=== PATIENT | male | born 1925 | race Caucasian/White ===

== ENCOUNTER 2017-04-26 10:15 | Inpatient (IN) | payer MEDICARE ==
[2017-04-26] MEDS ORDERED: Albuterol Sulfate 2.5 mg/3 ml Neb ONE (10:28)
--- NOTE | 2017-04-26 10:56 | RAD ---
PORTABLE AP CHEST: Date: 04/26/17 HISTORY: Dyspnea. Non STEMI. Difficulty breathing. COMPARISON: 09/05/14. FINDINGS: Again noted is elevation of the right hemidiaphragm with atelectasis at the right lung base. Lungs ar e otherwise clear. The cardiac silhouette is stable in size. Pulmonary vasculature is within normal l imits. Vascular calcifications seen in thoracic aorta. There has been no interval change from the aleyda or exam. IMPRESSION: 1. Stable chest without evidence of an acute cardiopulmonary process. 2. Persistent elevation right hemidiaphragm with volume loss at right lung base. POS: [facility]
[2017-04-26 12:07] LABS: Troponin I 3.229 ng/mL (< 0.028)
--- NOTE | 2017-04-26 14:10 | HP ---
CHIEF COMPLAINT: Shortness of breath. HISTORY OF PRESENT ILLNESS: Ab Cast is a pleasant 89-year-old white male with a long prior h istory of coronary artery disease and heart failure who presented to his local ER this morning with a rather abrupt onset of shortness of breath. He was given Lasix at the outlying ER and transported t o [facility]. At that time, he was noticed to be in acute heart failure with pulmonary edema and was treated and subsequently admitted. I visited the gentleman in the ER. PHYSICAL EXAMINATION: VITAL SIGNS: His blood pressure was 152/87, his pulse rate was 90 and regular with frequent PVCs. H diana is afebrile. GENERAL: He is awake and alert and is on a BiPAP mask. EARS/NOSE/THROAT: No erythema or exudate. NECK: Supple. CARDIAC: The PMI slightly displaced laterally. Heart rhythm is regular. Heart sounds are distant. There is frequent ectopy. LUNGS: Moist rales heard to the mid lung field bilaterally. No use of accessory muscles. ABDOMEN: Flat and soft, without guarding, rebound or rigidity. EXTREMITIES: 1+ edema. NEUROLOGIC: No focal deficits. EKG: No acute ST segment changes, frequent PVCs. Much lab is still pending. However, his initial t roponin is elevated at 3.229. ASSESSMENT: 1. Non-ST elevation myocardial infarction. 2. Acute heart failure. PLAN: Admit. Continue Lasix. We will consult with Cardiology for further recommendations. He mat lyles sees Dr. Hermosillo and has so for many years.
[2017-04-26] MEDS ORDERED: Ondansetron ODT 4 MG TAB PO PRN (14:16)
--- NOTE | 2017-04-26 14:18 | HP-2 ---
CODE STATUS: DNR. PRIMARY CARE PHYSICIAN: Alan ivey. SPECIALIST: Dr. Hermosillo with Cardiology. ATTENDING: Dr. Mcgee. RESIDENT: Dr. Roque. CHIEF COMPLAINT: Shortness of breath. HISTORY OF PRESENT ILLNESS: An 89-year-old male presents with acute onset of shortness of breath donna t occurred last night. He states he was asleep, and he woke up suddenly and became short of breath a nd he could not catch up with his wind. He denied any chest pain at that time and then he went to [facility] emergency department in [place], [place]. He was found to be satting in the 80s on 3 liters of oxyge n. He chronically uses oxygen at night, not a CPAP machine, but just supplemental oxygen. He was gi [facility] and was sent to [facility] for further care. He denies any recent illness, diaphoresis, nausea, vomiting, or diarrhea. He does note that he does have a little bit of a headache that began sometime while he was in [place]. He has no other complaints at this time. PAST MEDICAL HISTORY: Significant for CHF, past CVAs, past myocardial infarctions, hyperlipidemia, h ypertension, COPD, remote history of prostate cancer, and atrial fibrillation. PAST SURGICAL HISTORY: He had a surgery on his neck. He had an appendectomy. He had a hip arthropl asty and a rotator cuff repair. ALLERGIES: IODIDES, TETANUS VACCINE AND TOXOID. HOME MEDICATIONS: 1. Acetaminophen 500 mg tablet. 2. Albuterol HFA inhaler 90 mcg 2 puffs every 6 hours as needed. 3. Atorvastatin 10 mg. 4. Furosemide 40 mg. 5. Imdur 60 mg. 6. Magnesium chloride 64 mg. 7. Metoprolol. 8. Lopressor 25 mg. 9. Nitroglycerin 0.4 mg sublingual. 10. Potassium chloride 20 mEq. 11. Ranexa 1000 mg. 12. Tramadol 50 mg. 13. Warfarin 1 mg. FAMILY HISTORY: Noncontributory. SOCIAL HISTORY: The patient does have a [id number] smoking history, but he quit over 50 years ago. He does drink alcohol socially. He denies any drug use. REVIEW OF SYSTEMS: General: He denies any fevers, chills, weight changes, night sweats, or fatigue. Eyes: Denies any vision change or eye pain. ENT: Denies any nasal congestion, rhinorrhea, or sor e throat. Respiratory: He denies any cough or congestion. He does admit to shortness of breath. C ardiovascular: He denies any chest pain or palpitations. He has longstanding edema and a new onset orthopnea. Gastrointestinal: He denies any nausea, vomiting, diarrhea, constipation, abdominal pain , GI bleeding. Genitourinary: Denies incontinence or dysuria. Skin: Denies rashes, lesions, jaund ice, itching. He does admit to frequent bruising from his Coumadin use. Musculoskeletal: No pain, tenderness, stiffness, or swelling, but he does have arthritis, especially in his hands. Neurologic: He does admit to weakness, especially in his legs following a CVA. Psychiatric: He denies any anx iety or depression. PHYSICAL EXAMINATION: VITAL SIGNS: Blood pressure is 119/71, pulse is 89, respirations are 20, temperature max 98.8, pulse ox 96% on BiPAP. Current weight is 84 kilos. GENERAL: Alert and oriented x4, appropriately interactive. EYES: PERRLA. Conjunctivae within normal limits. ENT: Tympanic membranes are pearly grigsby without bulging or erythema. Nasal mucosa and oropharynx wi thin normal limits. NECK: Supple, no lymphadenopathy, no thyromegaly. CARDIOVASCULAR: Regular rate and rhythm. No murmurs. Radial and pedal pulses are present bilateral ly. RESPIRATORY: He is currently on the BiPAP, but he did have crackles and wheezes throughout his lungs . SKIN: He is warm and dry. He does have multiple bruises on his upper extremities. ABDOMEN: Soft, nontender to palpation. Bowel sounds present x4. No mass or distention. EXTREMITIES: No clubbing, no cyanosis. He does have 1+ pitting edema bilaterally. MUSCULOSKELETAL: Structure, tone, muscle strength, and range of motion within normal limits. He mederos s have residual longstanding weakness at his legs where he uses a walker to ambulate. NEUROLOGIC: No focal neurologic deficits. Sensation within normal limits. Cranial nerves II-XII gr ossly intact. GCS of 15. PSYCHIATRIC: Appropriate LABORATORY DATA: These labs were actually conducted out at the [facility] facility and was brought with the patient. White blood cell count 5.9, platelet count 159, hemoglobin 13.8, hematocrit 39.9, MCV was 91.5. Sodium 139, potassium 3.6, chloride 100, bicarbonate 29, BUN 23, crea tinine 1.23, glucose 167, calcium 8.6, total protein 6.0, albumin 3.4, total bilirubin 1.1, AST of 26 , ALT 15, alkaline phosphate 64. INR was 2.7. PT was 28.5. Lactate was 1.9. BNP was 761. Troponi n I was 2.96 that trended up to 3.2-9. He had a VBG that showed a pH of 7.41, pCO2 of 43, and a pO2 of 71. His EKG showed normal sinus rhythm with frequent PVCs. A chest x-ray showed a stable chest w ithout evidence of acute cardiopulmonary process, persistent elevation of the right hemidiaphragm wit hout loss of volume on the right side. ASSESSMENT AND PLAN: This 89-year-old male presents with: 1. Zkn-MX-[id number] elevation myocardial infarction. We are going to trend his troponins and get repe at EKG. If symptomatic, we have consulted Cardiology from the emergency department. We have not ful ly ruled out the evidence of a pulmonary embolism. However, being that he has therapeutic levels of Coumadin, we will consider working him up for deep vein thrombosis in the coming days if the status d oes not improve. 2. Acute congestive heart failure exacerbation. We will keep him on the BiPAP, keep his O2 saturati ons above 90%. Give him IV Lasix and trend his I's and O's. 3. Acute hypoxic respiratory failure secondary to above. BiPAP and a pulmonology consult as he will be going to the IMCU. 4. Hyperlipidemia. Continue statin. 5. Hypertension. Continue his home meds. 6. Chronic obstructive pulmonary disease. We are going to start him on DuoNeb. 7. History of cerebrovascular accident. We will continue his warfarin. 8. History of atrial fibrillation. Continue his warfarin. DISPOSITION AND LENGTH OF HOSPITAL STAY: Will be IMCU and 2. Symptomatic medications will be provid ed. History and physical exam as well as management have been discussed with Dr. Mcgee.
[2017-04-26 15:11] LABS: CKMB 6.7 ng/mL (0-6.6); Troponin I 3.113 ng/mL (< 0.028)
[2017-04-26] MEDS: Furosemide 40 MG/4 ML VIAL SLOW IVP SCH (15:30)
--- NOTE | 2017-04-26 16:41 | CON ---
DATE OF CONSULTATION: 04/26/2017 CONSULTING PHYSICIAN: [facility]. REASON FOR CONSULTATION: Acute respiratory failure. HISTORY OF PRESENT ILLNESS: This is an 89-year-old male from the [facility]. He woke up this morn ing extremely short of breath. He presented to the [facility] in acute respirato ry failure, which was thought secondary to congestive heart failure. The patient tells me that he does have some reactive airway disease. He has been told in the past th is is COPD. He has not smoked in the last 60 years. He does use an albuterol inhaler at home when h e gets short of breath. PAST MEDICAL HISTORY: 1. Congestive heart failure. 2. Chronic obstructive pulmonary disease. 3. Stroke. 4. Myocardial infarction. 5. Hyperlipidemia. 6. Hypertension. 7. Prostate cancer. 8. Atrial fibrillation. PAST SURGICAL HISTORY: 1. Neck surgery. 2. Appendectomy. 3. Hip arthroplasty. 4. Rotator cuff repair. ALLERGIES: IODINE, TETANUS TOXOID and TETANUS VACCINE. MEDICATIONS PRIOR TO ADMISSION: Metoprolol, magnesium chloride, Imdur, furosemide, acetaminophen, al buterol, atorvastatin, nitroglycerin, potassium chloride, Ranexa, tramadol and warfarin. FAMILY MEDICAL HISTORY: Unremarkable. SOCIAL HISTORY: Patient quit smoking 60 years ago. Does not consume alcohol, does not use any illic it drugs. Lives at home with his . REVIEW OF SYSTEMS: Remarkable for wheezing, congestion and shortness of breath. Otherwise, 12-point review is negative. PHYSICAL EXAMINATION: VITAL SIGNS: Temperature 99.3, pulse 83, respiration is 24, O2 sat 98% and blood pressure 129/74. GENERAL: The patient is awake and alert. He is conversant when the BiPAP is removed. HEENT: Pupils react. Sclerae are anicteric. Oropharynx is clear. NECK: No JVD. LUNGS: Harsh expiratory wheezing bilaterally. He has diminished percussion in the right base, left side has normal percussion. CARDIOVASCULAR: S1 and S2 are regular, without murmur, rub or gallop. ABDOMEN: Soft and nontender. EXTREMITIES: No clubbing, cyanosis, trace pedal edema. LABORATORY DATA: Troponin is 3.1. White blood cell count 5.9, hematocrit 39.9 and platelet count 15 9. Sodium 139, potassium 3.6, chloride 100, CO2 of 29, BUN 23, creatinine 1.2 and glucose 167. BNP was measured at 761. ABG; pH 7.41, pCO2 of 42 and pO2 71. IMAGING DATA: Chest x-ray interpreted by myself shows elevated right hemidiaphragm, fairly clear diane g collado bilaterally. ASSESSMENT: 1. Asthmatic bronchitis with exacerbation of symptoms. 2. Acute hypoxic respiratory failure. 3. Question of concurrent heart failure. 4. Non-ST segment elevation myocardial infarction. RECOMMENDATIONS: 1. On and off BiPAP as needed. 2. Steroids. 3. Breathing treatments. 4. Empiric antibiotics. 5. Very judicious use of diuretics. Hence, I do not think he is very fluid overloaded at this time. Thank you for the referral. I will follow with you. Total time spent reviewing the case and reviewing the patient is 50 minutes, greater than 50% of the time was spent on counseling and coordination of care.
[2017-04-26] MEDS ORDERED: hydrALAZINE 20 MG/ML VIAL SLOW IVP PRN (16:48)
[2017-04-26] MEDS ORDERED: Aspirin 81 mg Enteric Coated Tablet PO SCH (17:00)
[2017-04-26 17:38] LABS: INR-International Normal Ratio 2.2; Prothrombin Time 25.2 SEC (12.0-14.7)
[2017-04-26 17:39] LABS: Critical Call Chem Troponin I RESULT DECREASING; Troponin I 2.696 ng/mL (< 0.028)
[2017-04-26] MEDS ORDERED: Furosemide 40 MG/4 ML VIAL SLOW IVP SCH (18:00)
[2017-04-26] MEDS ORDERED: Warfarin Sodium 2 MG TAB PO SCH (18:30)
[2017-04-26] MEDS: Arformoterol 15 MCG/2 ML NEB NEB SCH (18:38)
[2017-04-26] MEDS: Budesonide 0.5 MG/2 ML NEB INH SCH (18:38)
--- NOTE | 2017-04-26 19:54 | CON ---
CARDIOLOGY CONSULTATION NOTE DATE OF CONSULTATION: 04/26/2017 REASON FOR CONSULTATION: Non-ST elevation myocardial infarction. HISTORY OF PRESENT ILLNESS: Mr. Cast is an 89-year-old patient of Dr. Manan Hermosillo admitted and transferred from [place] with a non-ST elevation infarction. Mr. Cast was admitted to the hospital after he developed shortness of breath last night; he could not sleep, became progressively short of breath and could not catch his breath. He went to the emergency room in [place]; had oxygen saturation in the 80s on 3 liters nasal cannula. The patient went to the emergency room, was given Lasix and was transferred to [place] for [facility]. The patient is wheezing now, still having trouble breathing. No chest pain. PAST MEDICAL HISTORY: 1. Congestive heart failure, systolic, chronic, ejection fraction below 20%. 2. Coronary artery disease; underwent cardiac catheterization many years ago, in the year 1999. Med ical therapy was the only option due to diffuse atherosclerosis. 3. Hypercholesterolemia. PAST SURGICAL HISTORY: Surgery on his neck. ALLERGIES: IODINE, TETANUS and VACCINE. HOME MEDICATIONS: 1. Acetaminophen. 2. Albuterol. 3. Atorvastatin. 4. Furosemide. 5. Imdur. 6. Magnesium. 7. Metoprolol. 8. Lopressor. 9. Potassium. 10. Ranexa. 11. Tramadol. 12. Warfarin, unknown reason. FAMILY HISTORY: Noncontributory. SOCIAL HISTORY: Previous history of smoking, quit over 50 years ago. Occasional alcohol. REVIEW OF SYSTEMS: Constitutional: No significant weight gain or loss. Vision: No changes. Heari ng: No changes. Pulmonary: Positive for shortness of breath and cough. Cardiac: No chest pain or pressure. Positive for shortness of breath and cough. Gastrointestinal: No nausea, vomiting or di arrhea. Skin: No rashes. Neurologic: No unilateral weakness or numbness. Psychiatric: No unusua l depression or anxiety. Hematologic: No unusual bruising. Genitourinary: No burning with urinati on. He is able to urinate. PHYSICAL EXAMINATION: GENERAL: This is an ill-appearing elderly 89-year-old man. VITAL SIGNS: Blood pressure 129/74 and pulse 80, it is regular. EYES: Sclerae nonicteric. MOUTH: Mucous membranes are moist. NECK: Supple. No lymphadenopathy. LUNGS: Diffuse wheezing and rhonchi. CARDIAC: Normal S1 and normal S2. ABDOMEN: Soft and nontender. EXTREMITIES: No clubbing or cyanosis. There is mild peripheral edema. I do not feel pedal pulses e ither side or popliteal pulses. IMAGING DATA: Most recent echocardiogram in the computer was ejection fraction 45% to 50%. EKG; sin us rhythm with PVCs. ASSESSMENT: 1. Congestive heart failure, probably systolic, acute on chronic. 2. Non-ST elevation infarction with troponin level 3.1. 3. Renal insufficiency, estimated glomerular filtration rate is 50 on previous testing in 2015. Cre atinine is 1.23 now, which is actually better. 4. Chronic obstructive pulmonary disease. PLAN: 1. Check INR. 2. Start aspirin. 3. Echocardiogram to be done. 4. Lasix. 5. Inhaled bronchodilators. 6. Steroids. 7. Dr. Hermosillo will resume the patient's care tomorrow.
[2017-04-26 20:32] LABS: Critical Call Chem Troponin I RESULT DECREASING; Troponin I 1.823 ng/mL (< 0.028)
[2017-04-26] MEDS ORDERED: Atorvastatin Calcium 10 MG TAB PO SCH (21:00)
[2017-04-26 22:32] LABS: Critical Call Chem Troponin I RESULT DECREASING; Troponin I 1.593 ng/mL (< 0.028)
[2017-04-27] MEDS: Acetaminophen 325 MG TAB PO PRN ×2 (04:10→18:30)
[2017-04-27 04:47] LABS: #Lymphocytes 0.5 thou/uL (1.20-3.40); #Monocytes 0.1 thou/uL (0.11-0.59); #Neutrophils 3.1 thou/uL (1.40-6.50); %Basophils 0.2 % (0.0-1.0); %Eosinophils 0.3 % (0.0-10.0); %Lymphocytes 13.4 % (21.0-51.0); %Monocytes 3.7 % (0.0-10.0); %Neutrophils 82.4 % (42.0-75.0); Hemoglobin 14.3 g/dL (14.0-18.0); Mean Corpuscular HGB CONC 33.2 g/dL (32.0-36.0); Mean Corpuscular Hemoglobin 32.6 pg (27.0-31.0); Mean Corpuscular Volume 98.3 fl (80.0-94.0); Mean Platelet Volume 7.9 fL (7.4-10.4); Platelet Count 169 thou/uL (130-400); RBC Distribution Width 12.1 % (11.5-14.5); Red Blood Cell (RBC) Count 4.37 mill/uL (4.70-6.10); White Blood Cell (WBC) Count 3.8 thou/uL (4.8-10.8)
[2017-04-27 04:52] LABS: INR-International Normal Ratio 2.1; Prothrombin Time 24.5 SEC (12.0-14.7)
[2017-04-27 05:07] LABS: Anion Gap 16 mmol/L (10-20); BUN (Urea Nitrogen) 24 mg/dL (8.4-25.7); Calc. Creatinine Clearance 58 mL/min (70-130); Calcium 8.9 mg/dL (7.8-10.44); Carbon Dioxide 29 mmol/L (23-31); Chloride 96 mmol/L (98-107); Estimated GFR-MDRD 62; Glucose 206 mg/dL (83-110); Potassium 3.4 mmol/L (3.5-5.1); Sodium 138 mmol/L (136-145)
--- NOTE | 2017-04-27 06:10 | PDOC.FM ---
- Subjective Subjective: Patient had a good night. He states he did not have to use the BIPAP last night and was just using his supplemental O2 via nasal cannula which is back to his baseline. He states he has been peeing a lot and the nurse reported 3 episodes of diarrhea overnight. He denies chest pain, sob, n/v/d, fevers, or chills. He has no other complaints this morning. - Objective Vital Signs & Weight: Vital Signs (12 hours) Temp Pulse Resp BP Pulse Ox 04/27/17 04:00 97.5 F L 88 20 120/79 100 04/27/17 02:40 93 22 H 100 04/27/17 00:08 97.6 F 87 20 110/58 L 93 L 04/26/17 22:19 98 22 H 94 L 04/26/17 20:10 98.2 F 96 20 155/60 H 93 L 04/26/17 18:36 101 H 24 H 97 Weight Weight 91.081 kg I&O: 04/25/17 04/26/17 04/27/17 06:59 06:59 06:59 Intake Total 360 Output Total 1500 Balance -1140 Result Diagrams: 04/27/17 04:22 04/27/17 04:22 Phys Exam - Physical Examination Constitutional: NAD HEENT: PERRLA, moist MMs Neck: no nodes Respiratory: no wheezing, clear to auscultation bilateral Cardiovascular: RRR, no significant murmur Gastrointestinal: soft, non-tender, no distention, positive bowel sounds Musculoskeletal: no edema, pulses present Neurological: non-focal, normal sensation, moves all 4 limbs Lymphatic: no nodes Psychiatric: normal affect, A&O x 3 Skin: no rash Dx/Plan (1) NSTEMI (non-ST elevated myocardial infarction) Code(s): I21.4 - NON-ST ELEVATION (NSTEMI) MYOCARDIAL INFARCTION Status: Acute (2) Acute on chronic systolic heart failure Code(s): I50.23 - ACUTE ON CHRONIC SYSTOLIC (CONGESTIVE) HEART FAILURE Status : Acute (3) COPD (chronic obstructive pulmonary disease) Status: Acute (4) CKD (chronic kidney disease) stage 3, GFR 30-59 ml/min Code(s): N18.3 - CHRONIC KIDNEY DISEASE, STAGE 3 (MODERATE) Status: Acute (5) Dyslipidemia Code(s): E78.5 - HYPERLIPIDEMIA, UNSPECIFIED Status: Acute (6) HTN (hypertension) Code(s): I10 - ESSENTIAL (PRIMARY) HYPERTENSION Status: Acute (7) History of CVA (cerebrovascular accident) Code(s): Z86.73 - PRSNL HX OF TIA (TIA), AND CEREB INFRC W/O RESID DEFICITS Status: Acute (8) Diarrhea Code(s): R19.7 - DIARRHEA, UNSPECIFIED Status: Acute - Plan Plan: 1. NSTEMI - Cardiology on board appreciate Dr. Washington's and Dr. Hermosillo's recs - Trended troponins as high as 3.2, decreased to 1.59 - Will await cardiology recs 2. Acute on Chronic Systolic CHF - ECHO pending - Continue Lasix - I&Os -1140 ml this AM - Continue BIPAP as needed 3. COPD - Pulmonology consulted, appreciate Dr. Johnson's recs - Continue steroids, antibiotics, and inhalers - Continue BIPAP as needed 4. CKD3 - GFR estimated at 62 this AM - Improved from previous - Will monitor 5. Dyslipidemia - Continue Atorvastatin 6. HTN - Continue monitoring BP, under good control - Hydralazine PRN 7. Hx of CVA - INR this am 2.1 - Continue Warfarin 8. Diarrhea - Unknown etiology - Will ensure he stays hydrated Disposition: Stable will await Cardiology recs. Likely can be transferred to floor today.
[2017-04-27] MEDS: Furosemide 40 MG/4 ML VIAL SLOW IVP SCH ×2 (06:37→13:23)
[2017-04-27] MEDS: Arformoterol 15 MCG/2 ML NEB NEB SCH ×2 (07:13→19:05)
[2017-04-27] MEDS: Budesonide 0.5 MG/2 ML NEB INH SCH ×2 (07:13→19:05)
[2017-04-27] MEDS: Potassium Chloride 20 MEQ TAB PO SCH (08:13)
[2017-04-27] MEDS: Aspirin 81 mg Enteric Coated Tablet PO SCH (08:13)
[2017-04-27] MEDS: Magnesium Chloride 64 MG TAB PO SCH (08:17)
--- NOTE | 2017-04-27 08:44 | PRG ---
DATE OF SERVICE: 04/27/2017 The patient is doing well this morning, had no acute complaints. PHYSICAL EXAMINATION: VITAL SIGNS: Temperature 97.8, pulse 87, respirations 20, O2 sat 100% on 4 liters, blood pressure 12 3/60. HEENT: Unremarkable. NECK: No JVD. LUNGS: Clear without wheezing. CARDIAC: S1 and S2 regular. ABDOMEN: Soft. EXTREMITIES: No edema. LABORATORY DATA: White blood cell count 3.8, hematocrit 43, platelet count 169. INR 2.1. Sodium 13 8, potassium 3.4, chloride 96, CO2 29, BUN 24, creatinine 1.1, glucose 206, troponin 1.5. ASSESSMENT: 1. Chronic obstructive pulmonary disease with exacerbation. 2. Non-Q-wave myocardial infarction. 3. Acute respiratory failure which has resolved. PLAN: 1. The patient will be transferred to the telemetry floor. 2. Continue treatment of COPD exacerbation and congestive heart failure.
[2017-04-27] MEDS ORDERED: Nitroglycerin 0.4 MG TAB (25 Tab Bottle) SL PRN (09:27)
[2017-04-27] MEDS ORDERED: Morphine 2 MG/ML SYRINGE SLOW IVP SCH (09:30)
[2017-04-27 09:50] LABS: CKMB 4.1 ng/mL (0-6.6)
[2017-04-27] MEDS ORDERED: Nitroglycerin 50 MG/250 ML BOT 250 ML IVPB SCH (10:00)
[2017-04-27] MEDS ORDERED: Lisinopril 5 MG TAB PO SCH (10:00)
[2017-04-27] MEDS ORDERED: Clopidogrel Bisulfate 300 MG TAB PO SCH (10:00)
[2017-04-27 10:02] LABS: Troponin I 0.676 ng/mL (< 0.028)
[2017-04-27] MEDS ORDERED: Lisinopril 2.5 MG TAB PO SCH ×2 (10:15→21:00)
[2017-04-27] MEDS ORDERED: predniSONE 20 MG TAB PO SCH ×2 (11:15→21:00)
--- NOTE | 2017-04-27 12:18 | CON ---
DATE OF CONSULTATION: 04/27/2017 HISTORY OF PRESENT ILLNESS: Patient is an elderly 89-year-old gentleman with a history of severe cor onary artery disease and cardiomyopathy, who presented with chest discomfort and respiratory failure, who developed acute onset of recurrent chest discomfort. The patient was seen initially in the year 1999. He was found to have a severe decrease in left systolic function with estimated ejection frac tion 20%-25%. The inferior wall was hypokinetic. There was diffuse 3-vessel disease that was only a menable to medical therapy. The patient has done remarkably well on medical therapy and has previous ly suffered a cerebrovascular accident. The patient presented with the acute onset of substernal fransisco st discomfort and dyspnea. The patient was admitted to the [facility]. He suddenly developed recurrent ch est discomfort. PHYSICAL EXAMINATION: VITAL SIGNS: His blood pressure is 124/68. NECK: Full. LUNGS: Have scattered wheezes. HEART: Regular rate and rhythm, normal S1 and S2. ABDOMEN: Distended. EXTREMITIES: Showed mild edema. LABORATORY RESULTS: Sodium 138, potassium 3.4, bicarbonate 96, BUN 24, creatinine 1.1. His troponin was 3.1, MB 6.7. EKG revealed normal sinus rhythm with an ST-T wave abnormality suggestive of ische [place]. IMPRESSION: 1. Non-Q-wave myocardial infarction. 2. Severe diffuse 3-vessel coronary artery disease. 3. Severe ischemic cardiomyopathy. 4. History of hypertension. 5. Dyslipidemia. 6. Chronic obstructive pulmonary disease. 7. Obesity. PLAN: This gentleman presents for his recurrent chest pain after suffering a myocardial infarction. From a cardiac standpoint, I have treated him with Plavix despite the fact that he is on Coumadin an d aspirin. I will also start him on low dose of YOJANA inhibitor therapy. The patient will be transfer red to ICU and placed on IV nitroglycerin. Patient's prognosis is very guarded. This is a critical care note, time 45 minutes.
[2017-04-27] MEDS ORDERED: Chloraseptic Spray 180 ml Bottle PO PRN (13:06)
--- NOTE | 2017-04-27 13:25 | RAD ---
CHEST ONE VIEW: HISTORY: Congestive heart failure. COMPARISON: 04/26/2017 FINDINGS: Portable upright chest demonstrates atherosclerosis of the aorta. The heart is enlarged. The pulmon talia vessels are slightly prominent. The costophrenic angles are clear. There is elevation of the ri ght hemidiaphragm. Parenchymal changes in the right lung base, likely due to atelectasis. No pneumo thorax or osseous abnormality. IMPRESSION: 1. Atherosclerosis. 2. Right lower lobe atelectasis with elevation of right hemidiaphragm. POS: [facility]
--- NOTE | 2017-04-27 13:52 | PRG ---
DATE OF SERVICE: 04/27/2017 This morning Mr. Cast started to have some chest discomfort which was relieved with nitroglycerin and aspirin. Dr. Hermosillo was consulted and is in the process of seeing the patient. His EKG does n ot show any significant ST segment changes and this is likely an episode of ischemic unstable angina. The patient is only a candidate for maximal medical therapy. Again, Dr. Hermosillo has been consulte d and is in the process now of seeing the patient and writing orders. Mr. Cast clinically was imp roved after the nitroglycerin, aspirin and oxygen.
[2017-04-27] MEDS: Carvedilol 3.125 MG TAB PO SCH (16:51)
[2017-04-27] MEDS ORDERED: Warfarin Sodium 1 MG TAB PO SCH (17:00)
[2017-04-27] MEDS ORDERED: Warfarin Sodium 2 MG TAB PO SCH (17:00)
[2017-04-27] MEDS: Atorvastatin Calcium 20 MG TAB PO SCH (20:07)
--- NOTE | 2017-04-27 23:44 | EKG ---
Test Reason : C/O CHEST PAIN Blood Pressure : / mmHG Vent. Rate : 106 BPM Atrial Rate : 106 BPM P-R Int : 194 ms QRS Dur : 102 ms QT Int : 338 ms P-R-T Axes : 063 027 233 degrees QTc Int : 448 ms Atrial fibrillation.,PVC's Abnormal ECG When compared with ECG of 26-APR-2017 10:30, (Unconfirmed) Current undetermined rhythm precludes rhythm comparison, needs review ST more depressed in Lateral leads T wave inversion now evident in Inferior leads T wave inversion now evident in Anterolateral leads Confirmed by Herman BURK ([id number]) on 04/27/2017 11:44:20 PM Referred By: SHARON Confirmed By:Herman BURK
--- NOTE | 2017-04-27 23:45 | EKG ---
Test Reason : CODE GREEN Blood Pressure : / mmHG Vent. Rate : 099 BPM Atrial Rate : 100 BPM P-R Int : 188 ms QRS Dur : 100 ms QT Int : 382 ms P-R-T Axes : 066 001 046 degrees QTc Int : 490 ms Sinus rhythm with Premature supraventricular complexes with occasional Premature ventricular complexe s Nonspecific ST abnormality Prolonged QT Abnormal ECG When compared with ECG of 27-APR-2017 09:11, (Unconfirmed) Previous ECG has undetermined rhythm, needs review ST more depressed in Anterior leads ST less depressed in Lateral leads T wave inversion no longer evident in Inferior leads T wave inversion no longer evident in Anterolateral leads Confirmed by Herman BURK ([id number]) on 04/27/2017 11:44:36 PM Referred By: CARLIE Confirmed By:Herman BURK
[2017-04-28] MEDS: Acetaminophen 325 MG TAB PO PRN (03:55)
[2017-04-28 05:54] LABS: #Lymphocytes 0.6 thou/uL (1.20-3.40); #Monocytes 1.1 thou/uL (0.11-0.59); #Neutrophils 11.9 thou/uL (1.40-6.50); %Basophils 0.2 % (0.0-1.0); %Eosinophils 0.1 % (0.0-10.0); %Lymphocytes 4.6 % (21.0-51.0); %Monocytes 8.2 % (0.0-10.0); %Neutrophils 86.9 % (42.0-75.0); Hemoglobin 14.8 g/dL (14.0-18.0); Mean Corpuscular Hemoglobin 31.8 pg (27.0-31.0); Mean Corpuscular Volume 99.2 fl (80.0-94.0); Mean Platelet Volume 7.9 fL (7.4-10.4); Platelet Count 192 thou/uL (130-400); RBC Distribution Width 12.3 % (11.5-14.5); Red Blood Cell (RBC) Count 4.67 mill/uL (4.70-6.10); White Blood Cell (WBC) Count 13.6 thou/uL (4.8-10.8)
[2017-04-28 05:57] LABS: INR-International Normal Ratio 3.1; PTT 48.1 SEC (22.9-36.1); Prothrombin Time 33.3 SEC (12.0-14.7)
[2017-04-28 06:14] LABS: Anion Gap 16 mmol/L (10-20); BUN (Urea Nitrogen) 40 mg/dL (8.4-25.7); Calc. Creatinine Clearance 37 mL/min (70-130); Calcium 9.1 mg/dL (7.8-10.44); Carbon Dioxide 32 mmol/L (23-31); Chloride 94 mmol/L (98-107); Estimated GFR-MDRD 42; Glucose 156 mg/dL (83-110); Potassium 3.8 mmol/L (3.5-5.1); Sodium 138 mmol/L (136-145)
[2017-04-28] MEDS: Furosemide 40 MG/4 ML VIAL SLOW IVP SCH (06:50)
--- NOTE | 2017-04-28 07:39 | PDOC.PULPN ---
Progress Note: Subj/Obj - Subjective Date: 04/28/17 Time: 07:37 Narrative: Not having chest pain, but on NTG drip - ROS Respiratory: no reported symptoms - Objective Allergies/Adverse Reactions: Allergies Allergy/AdvReac Type Severity Reaction Status Date / Time iodine Allergy Verified 08/26/14 13:52 shellfish derived Allergy Verified 08/26/14 13:52 Tetanus Vaccines and Toxoid Allergy Verified 08/26/14 13:52 [Tetanus Vaccines & Toxoid] Medications: Current Medications Acetaminophen (Tylenol) 650 mg PO Q4H PRN PRN Reason: Headache/Fever or Pain Last Admin: 04/28/17 03:55 Dose: 650 mg Albuterol/Ipratropium (Duoneb) 3 ml NEB [id number] [facility] Last Admin: 04/28/17 02:39 Dose: 3 ml Arformoterol Tartrate (Brovana) 15 mcg NEB BID-RT A[facility] Last Admin: 04/27/17 19:05 Dose: 15 mcg Aspirin (Ecotrin) 81 mg PO DAILY [facility] Last Admin: 04/27/17 08:13 Dose: 81 mg Atorvastatin Calcium (Lipitor) 20 mg PO HS A[facility] Last Admin: 04/27/17 20:07 Dose: 20 mg Budesonide (Pulmicort Neb Solution) 0.5 mg INH BID-RT A[facility] Last Admin: 04/27/17 19:05 Dose: 0.5 mg Carvedilol (Coreg) 3.125 mg PO BID-WM [facility] Last Admin: 04/27/17 16:51 Dose: 3.125 mg Clopidogrel Bisulfate (Plavix) 75 mg PO DAILY [facility] Furosemide (Lasix) 40 mg SLOW IVP 0600,1400 [facility] Last Admin: 04/28/17 06:50 Dose: Not Given Hydralazine HCl (Apresoline) 10 mg SLOW IVP Q15MIN PRN PRN Reason: SBP Greater Than 170 Last Admin: 04/27/17 16:02 Dose: 10 mg Nitroglycerin/Dextrose (Nitroglycerin 50 Mg/250 Ml Bot) 250 mls @ 0 mls/hr IVPB INF ASHISH; Titrate PRN Reason: Protocol Last Admin: 04/27/17 10:17 Dose: 250 mls Levofloxacin (Levaquin) 750 mg PO 1500 [facility] Last Admin: 04/27/17 15:39 Dose: 750 mg Lisinopril (Zestril) 2.5 mg PO BID [facility] Last Admin: 04/27/17 20:08 Dose: 2.5 mg Magnesium Chloride (Slow-Mag) 64 mg PO DAILY [facility] Last Admin: 04/27/17 08:17 Dose: 64 mg Nitroglycerin (Nitrostat) 0.4 mg SL Q5MIN PRN PRN Reason: Chest Pain Ondansetron HCl (Zofran Odt) 4 mg PO Q6H PRN PRN Reason: Nausea/Vomiting Pantoprazole Sodium (Protonix) 40 mg PO BID [facility] Last Admin: 04/27/17 20:07 Dose: 40 mg Phenol (Chloraseptic [place] 180 Ml Bot) 1 ml PO BIDPRN PRN PRN Reason: Sore Throat Potassium Chloride (K-Dur) 20 meq PO DAILY [facility] Last Admin: 04/27/17 08:13 Dose: 20 meq Prednisone (Prednisone) 20 mg PO DAILY [facility] Ranolazine (Ranexa) 1,000 mg PO BID [facility] Last Admin: 04/27/17 20:07 Dose: 1,000 mg Sodium Chloride (Flush - Normal Saline) 10 ml IVF Q12HR [facility] Last Admin: 04/27/17 20:08 Dose: 10 ml Sodium Chloride (Flush - Normal Saline) 10 ml IVF PRN PRN PRN Reason: Saline Flush Spironolactone (Aldactone) 25 mg PO QAM-WM [facility] Warfarin Sodium (Coumadin) 4 mg PO 1700 [facility] Last Admin: 04/27/17 16:51 Dose: 4 mg MAR Reviewed: Yes Vital Signs: Vital Signs Temp 98.6 F 04/28/17 04:00 Pulse 101 H 04/28/17 02:39 Resp 18 04/28/17 02:39 BP 110/68 04/27/17 20:08 Pulse Ox 100 04/28/17 02:39 Intake & Output 04/27/17 04/28/17 04/28/17 18:59 06:59 18:59 Intake Total 1086.2 778 Output Total 705 260 Balance 381.2 518 Intake: Intake, IV Amount 126.2 278 Nitroglycerin 50 MG/250 41.2 120 ML BOT 250 ml @ Titrate IVPB INF [facility] Rx#:[id number] Sodium Chloride 0.9% 10 85 158 ml IVF PRN PRN Rx#: [id number] Oral 960 500 Output: Output, [place] 705 260 Other: Voiding Method Indwelling Catheter Indwelling Catheter Progress Note: Exam - Physical Exam Constitutional: NAD HEENT: PERRLA, sclera anicteric Neck: no nodes, no JVD Cardiovascular: RRR Focused Respiratory Location: rales: Right, Left Gastrointestinal: soft, non-tender Musculoskeletal: no edema Neurological: non-focal, moves all 4 limbs Lymphatic: no nodes Psychiatric: normal affect, A&O x 3 Skin: no rash Progress Note: Data - Labs Result Diagrams: 04/28/17 05:38 04/28/17 05:38 Lab results: Laboratory Results 04/26/17 04/26/17 04/26/17 11:24 14:31 17:01 WBC RBC Hgb Hct MCV MCH MCHC RDW Plt Count MPV Neutrophils % Lymphocytes % Monocytes % Eosinophils % Basophils % Neutrophils # Lymphocytes # Monocytes # Eosinophils # Basophils # PT INR APTT Sodium Potassium Chloride Carbon Dioxide Anion Gap BUN Creatinine Estimated GFR (MDRD) Glucose Calcium CK-MB (CK-2) 6.7 H* Troponin I 3.229 H* 3.113 H* 2.696 H* 04/26/17 04/26/17 04/26/17 17:01 19:57 21:53 WBC RBC Hgb Hct MCV MCH MCHC RDW Plt Count MPV Neutrophils % Lymphocytes % Monocytes % Eosinophils % Basophils % Neutrophils # Lymphocytes # Monocytes # Eosinophils # Basophils # PT 25.2 H INR 2.2 APTT 40.0 H Sodium Potassium Chloride Carbon Dioxide Anion Gap BUN Creatinine Estimated GFR (MDRD) Glucose Calcium CK-MB (CK-2) Troponin I 1.823 H* 1.593 H* 04/27/17 04/27/17 04/27/17 04:22 04:22 04:22 WBC 3.8 L RBC 4.37 L Hgb 14.3 Hct 43.0 MCV 98.3 H MCH 32.6 H MCHC 33.2 RDW 12.1 Plt Count 169 MPV 7.9 Neutrophils % 82.4 H Lymphocytes % 13.4 L Monocytes % 3.7 Eosinophils % 0.3 Basophils % 0.2 Neutrophils # 3.1 Lymphocytes # 0.5 L Monocytes # 0.1 L Eosinophils # 0.0 Basophils # 0.0 PT 24.5 H INR 2.1 APTT Sodium 138 Potassium 3.4 L Chloride 96 L Carbon Dioxide 29 Anion Gap 16 BUN 24 Creatinine 1.12 Estimated GFR (MDRD) 62 Glucose 206 H Calcium 8.9 CK-MB (CK-2) Troponin I 04/27/17 04/28/17 04/28/17 09:18 05:38 05:38 WBC RBC Hgb Hct MCV MCH MCHC RDW Plt Count MPV Neutrophils % Lymphocytes % Monocytes % Eosinophils % Basophils % Neutrophils # Lymphocytes # Monocytes # Eosinophils # Basophils # PT 33.3 H INR 3.1 APTT 48.1 H Sodium 138 Potassium 3.8 Chloride 94 L Carbon Dioxide 32 H Anion Gap 16 BUN 40 H Creatinine 1.58 H Estimated GFR (MDRD) 42 Glucose 156 H Calcium 9.1 CK-MB (CK-2) 4.1 Troponin I 0.676 H* 04/28/17 05:38 WBC 13.6 H RBC 4.67 L Hgb 14.8 Hct 46.4 MCV 99.2 H MCH 31.8 H MCHC 32.0 RDW 12.3 Plt Count 192 MPV 7.9 Neutrophils % 86.9 H Lymphocytes % 4.6 L Monocytes % 8.2 Eosinophils % 0.1 Basophils % 0.2 Neutrophils # 11.9 H Lymphocytes # 0.6 L Monocytes # 1.1 H Eosinophils # 0.0 Basophils # 0.0 PT INR APTT Sodium Potassium Chloride Carbon Dioxide Anion Gap BUN Creatinine Estimated GFR (MDRD) Glucose Calcium CK-MB (CK-2) Troponin I Progress Note: A/P - Problems (1) Chronic obstructive pulmonary disease with acute exacerbation Current Visit: Yes Status: Acute Code(s): J44.1 - CHRONIC OBSTRUCTIVE PULMONARY DISEASE W (ACUTE) EXACERBATION Assessment and Plan: Need to back down on steroid dose. Stop levaquin after 5 days (2) CHOLO (acute kidney injury) Current Visit: No Status: Acute Code(s): N17.9 - ACUTE KIDNEY FAILURE, UNSPECIFIED Assessment and Plan: decrease lasix (3) Acute on chronic systolic heart failure Current Visit: No Status: Acute Code(s): I50.23 - ACUTE ON CHRONIC SYSTOLIC (CONGESTIVE) HEART FAILURE Assessment and Plan: per cardiology (4) Angina at rest Current Visit: No Status: Acute Code(s): I20.8 - OTHER FORMS OF ANGINA PECTORIS Assessment and Plan: per cardiology
--- NOTE | 2017-04-28 07:44 | PDOC.FM ---
- Subjective Subjective: Patient awake and alert this morning. He is much improved from yesterday. Denies CP, SOB, abdominal pain. Requiring 3.5L via NC No acute events overnight - Objective MAR Reviewed: Yes Vital Signs & Weight: Vital Signs (12 hours) Temp Pulse Resp BP Pulse Ox 04/28/17 04:00 98.6 F 04/28/17 02:39 101 H 18 100 04/27/17 22:41 98 18 99 04/27/17 21:00 98.6 F 04/27/17 20:08 115 H 110/68 04/27/17 20:00 98.6 F 98 18 100 Weight Weight 82.611 kg Most Recent Monitor Data Heart Rate from ECG 87 NIBP 92/58 NIBP BP-Mean 88 Respiration from ECG 32 SpO2 94 I&O: 04/27/17 04/28/17 04/29/17 06:59 06:59 06:59 Intake Total 760 1864.2 Output Total 1675 965 Balance -915 899.2 Result Diagrams: 04/28/17 05:38 04/28/17 05:38 <Geoffrey Nieves - Last Filed: 04/28/17 07:42> - Objective Vital Signs & Weight: Vital Signs (12 hours) Temp Pulse Resp BP Pulse Ox 04/28/17 10:03 99 04/28/17 10:01 85 19 99 04/28/17 08:00 97 F L 85 19 88/50 L 94 L 04/28/17 07:00 97.7 F 04/28/17 04:00 98.6 F 04/28/17 02:39 101 H 18 100 Weight Weight 82.611 kg Most Recent Monitor Data Heart Rate from ECG 85 NIBP 119/64 NIBP BP-Mean 70 Respiration from ECG 15 SpO2 99 I&O: 04/27/17 04/28/17 04/29/17 06:59 06:59 06:59 Intake Total 760 1864.2 700 Output Total 1675 965 120 Balance -915 899.2 580 Result Diagrams: 04/28/17 05:38 04/28/17 05:38 <Asha Jarvis - Last Filed: 04/28/17 11:25> Phys Exam - Physical Examination Constitutional: NAD HEENT: moist MMs Neck: supple, full ROM Respiratory: no wheezing, no rales Cardiovascular: RRR, no significant murmur Gastrointestinal: soft, no distention Neurological: moves all 4 limbs Psychiatric: normal affect <Geoffrey Nieves - Last Filed: 04/28/17 07:42> Dx/Plan (1) Unstable angina Status: Acute Plan: CP at rest on 04/27 resulting in transfer to CCU. Patient was started on nitro gtt, plavix, lisinopril, and spironolactone per Cardiology recommendations. Likely able to transfer out of unit pending cardiology re-eval. Pressures continue to be low 2/2 nitro gtt (2) NSTEMI (non-ST elevated myocardial infarction) Code(s): I21.4 - NON-ST ELEVATION (NSTEMI) MYOCARDIAL INFARCTION Status: Acute Plan: Followed by Cardiology (3) COPD (chronic obstructive pulmonary disease) Status: Acute Plan: Decrease steroids Continue 5 day course of levaquin Continue nebs, BiPap PRN Pulmonology following (4) Acute on chronic systolic heart failure Code(s): I50.23 - ACUTE ON CHRONIC SYSTOLIC (CONGESTIVE) HEART FAILURE Status : Acute Plan: Echo unchanged from previous study Strict I/O's (5) CKD (chronic kidney disease) stage 3, GFR 30-59 ml/min Code(s): N18.3 - CHRONIC KIDNEY DISEASE, STAGE 3 (MODERATE) Status: Acute Plan: Continue to monitor Decrease IV lasix (6) History of CVA (cerebrovascular accident) Code(s): Z86.73 - PRSNL HX OF TIA (TIA), AND CEREB INFRC W/O RESID DEFICITS Status: Acute Plan: INR of 3.1 this morning Continue to monitor and adjust as needed (7) Dyslipidemia Code(s): E78.5 - HYPERLIPIDEMIA, UNSPECIFIED Status: Acute Plan: Continue statin - Plan Plan: Plan: -continue steroids, abx, and nebs -likley d/c nitro gtt today and transfer to tele if patient remains stable <Geoffrey Nieves - Last Filed: 04/28/17 07:42> Attending Addendum - Attending Addendum I personally evaluated the patient and discussed the management with Dr. Nieves on 04/28/17. I agree with the History, Examination, Assessment and Plan documented above with any addition or exceptions noted below. The patient has no chest pain this morning. Will likely be able to stop nitro ip but will defer to cardiology. will try to wean oxygen. <Asha Jarvis - Last Filed: 04/28/17 11:25>
[2017-04-28] MEDS ORDERED: Clopidogrel Bisulfate 75 MG TAB PO SCH (09:00)
[2017-04-28] MEDS: Carvedilol 3.125 MG TAB PO SCH ×2 (09:28→17:00)
[2017-04-28] MEDS: Aspirin 81 mg Enteric Coated Tablet PO SCH (09:28)
[2017-04-28] MEDS: Magnesium Chloride 64 MG TAB PO SCH (09:28)
[2017-04-28] MEDS: Potassium Chloride 20 MEQ TAB PO SCH (09:29)
[2017-04-28] MEDS: Spironolactone 25 MG TAB PO SCH (09:29)
[2017-04-28] MEDS: predniSONE 20 MG TAB PO SCH (09:29)
[2017-04-28] MEDS: Budesonide 0.5 MG/2 ML NEB INH SCH ×2 (10:03→18:48)
[2017-04-28] MEDS: Arformoterol 15 MCG/2 ML NEB NEB SCH ×2 (10:03→18:48)
[2017-04-28] MEDS: Atorvastatin Calcium 20 MG TAB PO SCH (20:12)
[2017-04-28] MEDS ORDERED: Melatonin 3 MG TAB PO PRN (22:06)
[2017-04-29 05:10] LABS: #Lymphocytes 0.9 thou/uL (1.20-3.40); #Monocytes 1.3 thou/uL (0.11-0.59); #Neutrophils 8.6 thou/uL (1.40-6.50); %Basophils 0.2 % (0.0-1.0); %Eosinophils 0.1 % (0.0-10.0); %Lymphocytes 8.2 % (21.0-51.0); %Monocytes 11.6 % (0.0-10.0); %Neutrophils 79.9 % (42.0-75.0); Mean Corpuscular HGB CONC 33.7 g/dL (32.0-36.0); Mean Corpuscular Hemoglobin 33.3 pg (27.0-31.0); Mean Corpuscular Volume 98.9 fl (80.0-94.0); Mean Platelet Volume 7.8 fL (7.4-10.4); Platelet Count 183 thou/uL (130-400); RBC Distribution Width 12.3 % (11.5-14.5); White Blood Cell (WBC) Count 10.8 thou/uL (4.8-10.8)
[2017-04-29 05:15] LABS: INR-International Normal Ratio 3.2; Prothrombin Time 34.6 SEC (12.0-14.7)
[2017-04-29 05:22] LABS: Anion Gap 10 mmol/L (10-20); BUN (Urea Nitrogen) 47 mg/dL (8.4-25.7); Calc. Creatinine Clearance 48 mL/min (70-130); Calcium 9.2 mg/dL (7.8-10.44); Carbon Dioxide 36 mmol/L (23-31); Chloride 94 mmol/L (98-107); Estimated GFR-MDRD 56; Glucose 131 mg/dL (83-110); Sodium 136 mmol/L (136-145)
[2017-04-29] MEDS ORDERED: Furosemide 40 MG/4 ML VIAL SLOW IVP SCH (06:00)
[2017-04-29] MEDS: Arformoterol 15 MCG/2 ML NEB NEB SCH ×2 (07:31→18:42)
--- NOTE | 2017-04-29 07:41 | PDOC.PULPN ---
Progress Note: Subj/Obj - Subjective Date: 04/29/17 Time: 07:39 Narrative: No chest pain. Breathing better - ROS Respiratory: wheezing - Objective Allergies/Adverse Reactions: Allergies Allergy/AdvReac Type Severity Reaction Status Date / Time iodine Allergy Verified 08/26/14 13:52 shellfish derived Allergy Verified 08/26/14 13:52 Tetanus Vaccines and Toxoid Allergy Verified 08/26/14 13:52 [Tetanus Vaccines & Toxoid] Medications: Current Medications Acetaminophen (Tylenol) 650 mg PO Q4H PRN PRN Reason: Headache/Fever or Pain Last Admin: 04/28/17 03:55 Dose: 650 mg Albuterol/Ipratropium (Duoneb) 3 ml NEB [id number] [facility] Last Admin: 04/29/17 07:29 Dose: 3 ml Arformoterol Tartrate (Brovana) 15 mcg NEB BID-RT [facility] Last Admin: 04/29/17 07:31 Dose: 15 mcg Aspirin (Ecotrin) 81 mg PO DAILY [facility] Last Admin: 04/28/17 09:28 Dose: 81 mg Atorvastatin Calcium (Lipitor) 20 mg PO HS [facility] Last Admin: 04/28/17 20:12 Dose: 20 mg Budesonide (Pulmicort Neb Solution) 0.5 mg INH BID-RT [facility] Last Admin: 04/28/17 18:48 Dose: 0.5 mg Carvedilol (Coreg) 3.125 mg PO BID-WM [facility] Last Admin: 04/28/17 17:00 Dose: 3.125 mg Clopidogrel Bisulfate (Plavix) 75 mg PO DAILY [facility] Last Admin: 04/28/17 09:28 Dose: 75 mg Hydralazine HCl (Apresoline) 10 mg SLOW IVP Q15MIN PRN PRN Reason: SBP Greater Than 170 Last Admin: 04/27/17 16:02 Dose: 10 mg Nitroglycerin/Dextrose (Nitroglycerin 50 Mg/250 Ml Bot) 250 mls @ 0 mls/hr IVPB INF A[facility]; Titrate PRN Reason: Protocol Last Admin: 04/27/17 10:17 Dose: 250 mls Levofloxacin (Levaquin) 750 mg PO 1500 [facility] Last Admin: 04/28/17 15:48 Dose: 750 mg Magnesium Chloride (Slow-Mag) 64 mg PO DAILY [facility] Last Admin: 04/28/17 09:28 Dose: 64 mg Melatonin (Melatonin) 3 mg PO HSPRN PRN PRN Reason: Insomnia Last Admin: 04/28/17 22:47 Dose: 3 mg Nitroglycerin (Nitrostat) 0.4 mg SL Q5MIN PRN PRN Reason: Chest Pain Ondansetron HCl (Zofran Odt) 4 mg PO Q6H PRN PRN Reason: Nausea/Vomiting Pantoprazole Sodium (Protonix) 40 mg PO BID [facility] Last Admin: 04/28/17 20:12 Dose: 40 mg Phenol (Chloraseptic [place] 180 Ml Bot) 1 ml PO BIDPRN PRN PRN Reason: Sore Throat Potassium Chloride (K-Dur) 20 meq PO DAILY [facility] Last Admin: 04/28/17 09:29 Dose: 20 meq Prednisone (Prednisone) 20 mg PO 0800 [facility] Last Admin: 04/28/17 09:29 Dose: 20 mg Ranolazine (Ranexa) 1,000 mg PO BID [facility] Last Admin: 04/28/17 20:12 Dose: 1,000 mg Sodium Chloride (Flush - Normal Saline) 10 ml IVF Q12HR [facility] Last Admin: 04/28/17 20:12 Dose: 10 ml Sodium Chloride (Flush - Normal Saline) 10 ml IVF PRN PRN PRN Reason: Saline Flush Spironolactone (Aldactone) 25 mg PO QAM-[facility] [place] Last Admin: 04/28/17 09:29 Dose: 25 mg MAR Reviewed: Yes Vital Signs: Vital Signs Temp 98.6 F 04/29/17 04:00 Pulse 96 04/29/17 07:29 Resp 14 04/29/17 07:29 BP 134/73 04/29/17 08:00 Pulse Ox 99 04/29/17 07:31 Intake & Output 04/28/17 04/29/17 04/29/17 18:59 06:59 18:59 Intake Total 1240 200 Output Total 375 570 Balance 865 -370 Intake: Intake, IV Amount 500 Sodium Chloride 0.9% 10 500 ml IVF PRN PRN Rx#: [id number] Oral 740 200 Output: Output, [place] 375 570 Other: Voiding Method Indwelling Catheter Indwelling Catheter Progress Note: Exam - Physical Exam Constitutional: NAD HEENT: PERRLA, sclera anicteric Neck: no nodes Cardiovascular: RRR Focused Respiratory Location: wheezes: Right, Left Gastrointestinal: soft, non-tender Musculoskeletal: edema present Neurological: non-focal, normal sensation, moves all 4 limbs Lymphatic: no nodes Psychiatric: normal affect, A&O x 3 Skin: no rash Progress Note: Data - Labs Result Diagrams: 04/29/17 05:04 04/29/17 05:04 Lab results: Laboratory Results 04/27/17 04/28/17 04/28/17 09:18 05:38 05:38 WBC RBC Hgb Hct MCV MCH MCHC RDW Plt Count MPV Neutrophils % Lymphocytes % Monocytes % Eosinophils % Basophils % Neutrophils # Lymphocytes # Monocytes # Eosinophils # Basophils # PT 33.3 H INR 3.1 APTT 48.1 H Sodium 138 Potassium 3.8 Chloride 94 L Carbon Dioxide 32 H Anion Gap 16 BUN 40 H Creatinine 1.58 H Estimated GFR (MDRD) 42 Glucose 156 H Calcium 9.1 CK-MB (CK-2) 4.1 Troponin I 0.676 H* 04/28/17 04/29/17 04/29/17 05:38 05:04 05:04 WBC 13.6 H RBC 4.67 L Hgb 14.8 Hct 46.4 MCV 99.2 H MCH 31.8 H MCHC 32.0 RDW 12.3 Plt Count 192 MPV 7.9 Neutrophils % 86.9 H Lymphocytes % 4.6 L Monocytes % 8.2 Eosinophils % 0.1 Basophils % 0.2 Neutrophils # 11.9 H Lymphocytes # 0.6 L Monocytes # 1.1 H Eosinophils # 0.0 Basophils # 0.0 PT 34.6 H INR 3.2 APTT Sodium 136 Potassium 4.0 Chloride 94 L Carbon Dioxide 36 H Anion Gap 10 BUN 47 H Creatinine 1.22 Estimated GFR (MDRD) 56 Glucose 131 H Calcium 9.2 CK-MB (CK-2) Troponin I 04/29/17 05:04 WBC 10.8 RBC 4.50 L Hgb 15.0 Hct 44.5 MCV 98.9 H MCH 33.3 H MCHC 33.7 RDW 12.3 Plt Count 183 MPV 7.8 Neutrophils % 79.9 H Lymphocytes % 8.2 L Monocytes % 11.6 H Eosinophils % 0.1 Basophils % 0.2 Neutrophils # 8.6 H Lymphocytes # 0.9 L Monocytes # 1.3 H Eosinophils # 0.0 Basophils # 0.0 PT INR APTT Sodium Potassium Chloride Carbon Dioxide Anion Gap BUN Creatinine Estimated GFR (MDRD) Glucose Calcium CK-MB (CK-2) Troponin I Progress Note: A/P - Problems (1) Chronic obstructive pulmonary disease with acute exacerbation Current Visit: Yes Status: Acute Code(s): J44.1 - CHRONIC OBSTRUCTIVE PULMONARY DISEASE W (ACUTE) EXACERBATION (2) CHOLO (acute kidney injury) Current Visit: No Status: Acute Code(s): N17.9 - ACUTE KIDNEY FAILURE, UNSPECIFIED (3) Acute on chronic systolic heart failure Current Visit: No Status: Acute Code(s): I50.23 - ACUTE ON CHRONIC SYSTOLIC (CONGESTIVE) HEART FAILURE (4) Angina at rest Current Visit: No Status: Acute Code(s): I20.8 - OTHER FORMS OF ANGINA PECTORIS - Plan Plan: Can be moved to Telemetry floor Continue steroids and Nebs PT consult
[2017-04-29] MEDS ORDERED: Digoxin 0.25 MG TAB PO SCH (09:00)
[2017-04-29] MEDS: Carvedilol 3.125 MG TAB PO SCH ×2 (09:47→16:06)
[2017-04-29] MEDS: predniSONE 20 MG TAB PO SCH ×3 (09:48→16:06)
[2017-04-29] MEDS: Spironolactone 25 MG TAB PO SCH (09:48)
[2017-04-29] MEDS: Aspirin 81 mg Enteric Coated Tablet PO SCH (09:48)
[2017-04-29] MEDS: Magnesium Chloride 64 MG TAB PO SCH (09:49)
[2017-04-29] MEDS: Potassium Chloride 20 MEQ TAB PO SCH (09:49)
[2017-04-29] MEDS: Furosemide 40 MG TAB PO SCH (09:49)
[2017-04-29] MEDS: Digoxin 0.25 MG TAB PO SCH ×3 (09:50→12:45)
--- NOTE | 2017-04-29 10:51 | PDOC.FM ---
- Subjective Subjective: Patient doing well this morning. Nursing reports breathing and cough have worsened, but with no change in vital signs. Patient still receiving steroids and nebs and being followed by Pulmonology. His nitro gtt has been turned off for roughly one day and he denies recurrence of chest pain. - Objective MAR Reviewed: Yes Vital Signs & Weight: Vital Signs (12 hours) Temp Pulse Resp Pulse Ox 04/29/17 09:50 106 H 04/29/17 09:49 106 H 04/29/17 08:00 97.7 F 106 H 16 100 04/29/17 07:31 99 04/29/17 07:29 96 14 99 04/29/17 04:00 98.6 F 04/29/17 03:03 93 13 98 04/29/17 01:00 98.6 F Weight Weight 82.611 kg Most Recent Monitor Data Heart Rate from ECG 96 NIBP 107/76 NIBP BP-Mean 91 Respiration from ECG 16 SpO2 100 I&O: 04/28/17 04/29/17 04/30/17 06:59 06:59 06:59 Intake Total 1864.2 1440 600 Output Total 965 945 165 Balance 899.2 495 435 Result Diagrams: 04/29/17 05:04 04/29/17 05:04 <Geoffrey Nieves - Last Filed: 04/29/17 10:49> - Objective Vital Signs & Weight: Vital Signs (12 hours) Temp Pulse Resp Pulse Ox 04/29/17 09:50 106 H 04/29/17 09:49 106 H 04/29/17 08:00 97.7 F 106 H 16 100 04/29/17 07:31 99 04/29/17 07:29 96 14 99 04/29/17 04:00 98.6 F 04/29/17 03:03 93 13 98 04/29/17 01:00 98.6 F Weight Weight 82.611 kg Most Recent Monitor Data Heart Rate from ECG 96 NIBP 107/76 NIBP BP-Mean 91 Respiration from ECG 16 SpO2 100 I&O: 04/28/17 04/29/17 04/30/17 06:59 06:59 06:59 Intake Total 1864.2 1440 600 Output Total 965 945 165 Balance 899.2 495 435 Result Diagrams: 04/29/17 05:04 04/29/17 05:04 <Asha Jarvis - Last Filed: 04/29/17 11:01> Phys Exam - Physical Examination Constitutional: NAD HEENT: moist MMs Neck: supple, full ROM bilateral wheezing Cardiovascular: RRR, no significant murmur Gastrointestinal: soft, no distention Neurological: moves all 4 limbs Psychiatric: normal affect <Geoffrey Nieves - Last Filed: 04/29/17 10:49> Dx/Plan (1) Unstable angina Status: Acute Plan: CP at rest on 04/27 resulting in transfer to CCU. Patient was started on nitro gtt, plavix, lisinopril, and spironolactone per Cardiology recommendations. Nitro gtt was turned off 04/28 and patient denies recurrence of chest pain. He is stable for transfer to tele Continue to follow Cards recs (2) NSTEMI (non-ST elevated myocardial infarction) Code(s): I21.4 - NON-ST ELEVATION (NSTEMI) MYOCARDIAL INFARCTION Status: Acute Plan: Followed by Cardiology See above (3) COPD (chronic obstructive pulmonary disease) Status: Acute Plan: Decrease steroids Continue 5 day course of levaquin Continue nebs, BiPap PRN Pulmonology following Will receive lasix this AM in attempt to improve breathing (4) Acute on chronic systolic heart failure Code(s): I50.23 - ACUTE ON CHRONIC SYSTOLIC (CONGESTIVE) HEART FAILURE Status : Acute Plan: Echo unchanged from previous study Strict I/O's (5) CKD (chronic kidney disease) stage 3, GFR 30-59 ml/min Code(s): N18.3 - CHRONIC KIDNEY DISEASE, STAGE 3 (MODERATE) Status: Acute Plan: Continue to monitor Cr of 1.22 today (6) History of CVA (cerebrovascular accident) Code(s): Z86.73 - PRSNL HX OF TIA (TIA), AND CEREB INFRC W/O RESID DEFICITS Status: Acute Plan: INR of 3.2 this morning Continue to monitor and adjust as needed (7) Dyslipidemia Code(s): E78.5 - HYPERLIPIDEMIA, UNSPECIFIED Status: Acute Plan: Continue statin - Plan Plan: Plan: -transfer to tele -continue steroids, nebs, and levaquin -cardiology recs <Geoffrey Nieves - Last Filed: 04/29/17 10:49> Attending Addendum - Attending Addendum I personally evaluated the patient and discussed the management with Dr. Nieves. I agree with the History, Examination, Assessment and Plan documented above with any addition or exceptions noted below. The patient is stable to transfer to telemetry. Cardiology has given lasix and is starting digoxin. Pt will remain on levaquin. Lung sounds are slowly improving. <Asha Jarvis - Last Filed: 04/29/17 11:01>
[2017-04-29] MEDS: Budesonide 0.5 MG/2 ML NEB INH SCH (18:31)
[2017-04-29] MEDS: Atorvastatin Calcium 20 MG TAB PO SCH (20:26)
[2017-04-30 04:51] LABS: #Lymphocytes 0.7 thou/uL (1.20-3.40); #Monocytes 0.9 thou/uL (0.11-0.59); #Neutrophils 6.2 thou/uL (1.40-6.50); %Basophils 0.6 % (0.0-1.0); %Eosinophils 0.2 % (0.0-10.0); %Lymphocytes 8.9 % (21.0-51.0); %Monocytes 11.3 % (0.0-10.0); %Neutrophils 79.1 % (42.0-75.0); Hemoglobin 14.3 g/dL (14.0-18.0); Mean Corpuscular HGB CONC 33.3 g/dL (32.0-36.0); Platelet Count 171 thou/uL (130-400); RBC Distribution Width 12.2 % (11.5-14.5); Red Blood Cell (RBC) Count 4.34 mill/uL (4.70-6.10); White Blood Cell (WBC) Count 7.8 thou/uL (4.8-10.8)
[2017-04-30 04:55] LABS: Prothrombin Time 23.1 SEC (12.0-14.7)
[2017-04-30 05:06] LABS: Anion Gap 13 mmol/L (10-20); BUN (Urea Nitrogen) 44 mg/dL (8.4-25.7); Calc. Creatinine Clearance 51 mL/min (70-130); Calcium 9.1 mg/dL (7.8-10.44); Carbon Dioxide 34 mmol/L (23-31); Chloride 94 mmol/L (98-107); Estimated GFR-MDRD 55; Glucose 148 mg/dL (83-110); Potassium 4.6 mmol/L (3.5-5.1); Sodium 136 mmol/L (136-145)
--- NOTE | 2017-04-30 07:52 | PDOC.FM ---
- Subjective Subjective: Patient awake and alert this morning in no distress. Reports he only slept one hour last night but he denies CP or SOB. No acute events overnight per nursing. - Objective MAR Reviewed: Yes Vital Signs & Weight: Vital Signs (12 hours) Temp Pulse Resp Pulse Ox 04/30/17 04:00 97.4 F L 04/30/17 02:39 81 15 94 L 04/30/17 00:00 98.4 F 04/29/17 22:06 90 17 98 04/29/17 20:00 98.6 F 90 15 100 Weight Weight 89.9 kg Most Recent Monitor Data Heart Rate from ECG 83 NIBP 144/86 NIBP BP-Mean 105 Respiration from ECG 16 SpO2 100 I&O: 04/29/17 04/30/17 05/01/17 06:59 06:59 06:59 Intake Total 1440 1240 0 Output Total 945 1825 Balance 495 -585 0 Result Diagrams: 04/30/17 03:51 04/30/17 03:51 <Geoffrey Nieves - Last Filed: 04/30/17 07:50> - Objective Vital Signs & Weight: Vital Signs (12 hours) Temp Pulse Resp BP Pulse Ox 04/30/17 09:29 95 04/30/17 09:24 91 20 04/30/17 07:37 97.6 F 82 18 161/80 H 97 04/30/17 04:00 97.4 F L 04/30/17 02:39 81 15 94 L 04/30/17 00:00 98.4 F 04/29/17 22:06 90 17 98 Weight Weight 89.9 kg Most Recent Monitor Data Heart Rate from ECG 83 NIBP 144/86 NIBP BP-Mean 105 Respiration from ECG 16 SpO2 100 I&O: 04/29/17 04/30/17 05/01/17 06:59 06:59 06:59 Intake Total 1440 1240 0 Output Total 945 1825 Balance 495 -585 0 Result Diagrams: 04/30/17 03:51 04/30/17 03:51 <Asha Jarvis - Last Filed: 04/30/17 09:47> Phys Exam - Physical Examination Constitutional: NAD HEENT: moist MMs harsh crackles bilaterally with expiratory wheezing Cardiovascular: RRR, no significant murmur Gastrointestinal: soft, no distention Neurological: moves all 4 limbs Skin: no rash <Geoffrey Nieves - Last Filed: 04/30/17 07:50> Dx/Plan (1) Unstable angina Status: Acute Plan: CP at rest on 04/27 resulting in transfer to CCU. Patient was started on nitro gtt, plavix, lisinopril, and spironolactone per Cardiology recommendations. Nitro gtt was turned off 04/28 and patient denies recurrence of chest pain. He is being transferred to telemetry bed for further monitoring. Continue to follow Dr. Hermosillo recommendations (2) NSTEMI (non-ST elevated myocardial infarction) Code(s): I21.4 - NON-ST ELEVATION (NSTEMI) MYOCARDIAL INFARCTION Status: Acute Plan: Followed by Cardiology See above (3) COPD (chronic obstructive pulmonary disease) Status: Acute Plan: Decrease steroids Continue 7 day course of levaquin Continue nebs, BiPap PRN Pulmonology following Crackles have worsened overnight and breathing more labored this morning than usual- due for neb treatment and lasix; will re-evaluate after treatment (4) Acute on chronic systolic heart failure Code(s): I50.23 - ACUTE ON CHRONIC SYSTOLIC (CONGESTIVE) HEART FAILURE Status : Chronic Plan: Echo unchanged from previous study Strict I/O's Restart Lasix (5) CKD (chronic kidney disease) stage 3, GFR 30-59 ml/min Code(s): N18.3 - CHRONIC KIDNEY DISEASE, STAGE 3 (MODERATE) Status: Chronic Plan: Continue to monitor Cr of 1.24 today (6) History of CVA (cerebrovascular accident) Code(s): Z86.73 - PRSNL HX OF TIA (TIA), AND CEREB INFRC W/O RESID DEFICITS Status: Chronic Plan: Continue to monitor and adjust as needed (7) Dyslipidemia Code(s): E78.5 - HYPERLIPIDEMIA, UNSPECIFIED Status: Chronic Plan: Continue statin - Plan Plan: Plan: -may increase lasix pending his response to breathing treatment -d/c antibiotics today -continue to follow specialist recs <Geoffrey Nieves - Last Filed: 04/30/17 07:50> Attending Addendum - Attending Addendum I personally evaluated the patient and discussed the management with Dr. Nieves. I agree with the History, Examination, Assessment and Plan documented above with any addition or exceptions noted below. The patient has diffuse crackles and scattered wheezing. Receiving neb treatment during my exam this morning. Lasix is being scheduled. Will repeat a CXR. may need additional lasix. Following cardiology recs. <Asha Jarvis - Last Filed: 04/30/17 09:47>
[2017-04-30] MEDS: Budesonide 0.5 MG/2 ML NEB INH SCH ×3 (09:29→18:45)
[2017-04-30] MEDS: Arformoterol 15 MCG/2 ML NEB NEB SCH ×2 (09:35→18:45)
[2017-04-30] MEDS: predniSONE 20 MG TAB PO SCH ×2 (10:17→17:59)
[2017-04-30] MEDS: Carvedilol 3.125 MG TAB PO SCH (10:18)
[2017-04-30] MEDS: Furosemide 40 MG TAB PO SCH (10:18)
[2017-04-30] MEDS: Aspirin 81 mg Enteric Coated Tablet PO SCH (10:19)
[2017-04-30] MEDS: Spironolactone 25 MG TAB PO SCH (10:19)
--- NOTE | 2017-04-30 10:19 | RAD ---
PORTABLE CHEST: Date: 04-30-17 Provided Clinical History: Congestive heart failure. FINDINGS: Comparison 04-27-17. Lungs are hypoinflated, limiting evaluation. Cardiac silhouette remains enlarged. Vascular calcification involves the aortic arch. No focal consolidation, pleural fluid, or pneumotho rax apparent. Elevation of the right hemidiaphragm persists. IMPRESSION: Hypoinflated exam. POS: [facility]
[2017-04-30] MEDS: Digoxin 0.125 MG TAB PO SCH (10:20)
[2017-04-30] MEDS: Potassium Chloride 20 MEQ TAB PO SCH (10:21)
[2017-04-30] MEDS ORDERED: Carvedilol 3.125 MG TAB PO SCH (11:45)
[2017-04-30] MEDS: Magnesium Chloride 64 MG TAB PO SCH ×2 (11:51→15:19)
[2017-04-30] MEDS ORDERED: Carvedilol 6.25 MG TAB PO SCH (12:15)
--- NOTE | 2017-04-30 12:46 | PRG ---
DATE OF SERVICE: 04/30/2017 SUBJECTIVE: The patient says he is having trouble coughing up secretions. OBJECTIVE: VITAL SIGNS: Temperature is 97.6, pulse 91, respirations 20, O2 sat 95% on 2 liters. HEENT: Unremarkable. NECK: Has coarse rhonchi around his neck fairly clear breath sounds, peripherally. CARDIAC: S1 and S2 regular. ABDOMEN: Soft and nontender. EXTREMITIES: No edema. DIAGNOSTIC DATA: His chest x-ray is stable in appearance without evidence of consolidation. LABORATORY DATA: White blood cell count 7.8, hematocrit 42.9, platelet count 171. Sodium 136, potas sium 4.6, chloride 94, CO2 of 34, BUN 44, creatinine 1.2, and glucose 148. ASSESSMENT: 1. Chronic obstructive pulmonary disease with exacerbation. 2. Coronary artery disease with angina. PLAN: 1. I will go ahead and switch him to EzPAP with his nebulization therapy. 2. Might benefit from some mucolytics.
[2017-04-30 13:17] LABS: Blood, Urine Large (Negative); Clarity CLOUDY (Clear); Glucose, Urine (Dipstick) Negative (Negative); Nitrite Negative (Negative); Protein, Urine (Dipstick) 100 mg/dL (Neg-Trace); Specific Gravity, Urine 1.022 (1.002-1.036)
[2017-04-30 13:19] LABS: Bacteria/HPF None Seen HPF (None Seen); Hyaline Casts/LPF 0-3 HYALINE CAST LPF (0-3 Hyaline); RBC/HPF GREATER THAN 50-TNTC HPF (0-3); Squamous Epithelial None Seen HPF (0-3); Yeast-AUWi Flag 20.1 (0-25.0)
[2017-04-30 13:25] LABS: Bilirubin Unable to Interpret (Negative)
[2017-04-30 13:27] LABS: Crystals/HPF 2+ URIC ACID HPF (Negative); Leukocyte Negative (Negative); WBC/HPF 0-3 HPF (0-3)
[2017-04-30] MEDS ORDERED: Warfarin Sodium 3 MG TAB PO SCH (17:00)
[2017-04-30] MEDS: Carvedilol 6.25 MG TAB PO SCH (17:54)
[2017-04-30 18:17] LABS: Actual Bicarbonate (HCO3a) 31.6 mEq/L (22-26); Base Excess (BEa) 5.9 mEq/L (0 (+/-) 2.5); CO2 Tension 49.8 mmHg (35.0-45.0); Hematocrit-ABG 44.6 % (42.0-52.0); Hemoglobin (Hb) 14.3 g/dL (14.0-18.0); O2 Tension (PaO2) 84.2 mmHg (80.0-100.0); pH, Arterial 7.42 (7.35-7.45)
[2017-04-30 18:18] LABS: Calcium, Ionized 1.2 mmol/L (1.12-1.30); Puncture Site RRA
--- NOTE | 2017-04-30 18:46 | CON ---
DATE OF CONSULTATION: 04/30/2017 INPATIENT CONSULTATION REFERRING: Dr. Hermosillo, Cardiology. REASON FOR CONSULTATION: gross hematuria on multiple anticoagulation, history of prostate cancer HISTORY OF PRESENT ILLNESS: Mr. Cast is an 89-year-old male, admitted on . Patient was diagnosed with acute exacerbation of heart failure, non- ST elevated AZ, currently being treated with baby aspirin. Initially on admission, he was treated with Plavix, nitroglycerin drip. He has been on warfarin 4 mg 1 p.o. daily due to history of atrial fibrillation. As he developed gross hematuria this morning, Coumadin was discontinued. INR today is 2.0. It is unclear to me why the patient has indwelling Moreno catheter. He denies obstructive urinary symptoms. Per review of ER, Moreno catheter was not placed in the emergency room. Patient is unable to provide a clinical history due to his advanced age, is also at bedside; however, combined clinical history is very poor. They relate that he has history of prostate cancer treated in the remote past some 15-20 years ago, initially diagnosed by Dr. Parkinson who is retired. He states that his urinary caliber is usually adequate occasional slow stream; however, denies history of urinary retention or prior history of gross hematuria. He has a remote history of smoking many years ago. He quit 60+ years ago. The states that they have not seen a urologist for quite some time. He is known to have severe decrease in systolic ejection fraction 20-25% with COPD. As he presented with acute substernal chest pain, was initially presented to [facility]. Currently, he is being monitored with no recurrence of symptoms. Patient was transferred from [facility] to Cardiology telemetry, upon transfer, nurses noted that there was gross hematuria. Per nursing staff, there is history of possible traumatic catheter tugging with subsequent hematuria. Patient does have poor prognosis guarded given his comorbidities and severe CHF, COPD. Per his , hematuria component has improved since this morning. Currently, he is draining transparent red with no clots. Denies previous history of dysuria. PAST MEDICAL HISTORY: Severe congestive heart failure, ejection fraction of 20- 25%, history of CVA, history of myocardial infarction, history of hyperlipidemia , hypertension, COPD, remote history of prostate cancer, and atrial fibrillation. PAST SURGICAL HISTORY: Radiation therapy for his prostate cancer, appendectomy , hip arthroplasty, rotator cuff. ALLERGIES: IODINE which they are unable to tell me the reaction; TETANUS, TOXOID. HOME MEDICATIONS: Include acetaminophen, albuterol, atorvastatin, Lasix, Imdur , magnesium chloride, metoprolol, nitroglycerin sublingual, Ranexa, tramadol, warfarin 4 mg 1 p.o. daily. CURRENT MEDICATIONS: Include Brovana, baby aspirin, Lipitor, Pulmicort, Coreg, Lanoxin, Lasix 40 mg, Mucinex, Apresoline, Levaquin 750 mg, Zestril, Slow-Mag, melatonin, Nitrostat, Zofran, Protonix, K-Dur, prednisone, Ranexa, spironolactone; Flomax, which I have recently initiated. His Coumadin has been discontinued. Plavix has been discontinued as well. FAMILY HISTORY: Noncontributory. SOCIAL HISTORY: A 10-pack year smoking history, quit 50-60 years ago. Denies illicit drug use. REVIEW OF SYSTEMS: Ten point review of systems as above, otherwise noncontributory. PHYSICAL EXAMINATION: VITAL SIGNS: Stable 97.6, 99% on 2 liters, blood pressure is 140/94. I's and O 's. Moreno catheter was placed 04/28/2017 while in [facility]; previously, his voided urine without a Moreno catheter was adequate at 1675 mL. Urine output today is 1825. GENERAL: Alert, cooperative to physical exam, he is a poor historian, at bedside who is also a poor historian. HEENT: Grossly unremarkable. HEART: Distant. LUNGS: Coarse breath sounds. GI: Abdomen is obese, protuberant. GENITOURINARY: Uncircumcised phallus. Moreno catheter, 16 Sinhala secured which I have resecured x2 as there was concern regarding traumatic tugging. The urine in the bag is consistent with venous bleed, dark hematuria with no clots in the tubing, it is transparent red with Moreno catheter, flushing, which I performed myself demonstrated immediate clearing. Subsequent urine is red tinged with no clots appreciated. EXTREMITIES: No cyanosis, clubbing or edema. SCROTAL: Demonstrates descended testes. No evidence of intratesticular mass. RECTAL: Digital rectal exam is somewhat suboptimal that he has significant stool in his rectal vault. However, I do not feel any nodularities. Feels benign. PERTINENT LABS AND IMAGING: White count 7.8. His hemoglobin is stable at 14 with no acute decrease in hemoglobin and platelets are 171. INR today is 2.0, previously was 3.2. Chemistry profile, creatinine variable on admission 1.1 and subsequently 1.5, today is 1.2. Urinalysis is red, 100 protein, greater than 50 rbc's, no wbc's, no bacteria seen. Culture has been ordered by Cardiology. IMPRESSION AND PLAN: Mr. Cast is an 89-year-old male with history of severe congestive heart failure, ejection fraction of 20-25%. 1. Chronic obstructive pulmonary disease, current admission due to non-ST elevated myocardial infarction, currently being managed with baby aspirin. 2. History of atrial fibrillation with chronic Coumadin use at home, currently held due to gross hematuria. 3. History of prostate cancer, stage unknown with remote history of radiation. 4. Urologic issues of gross hematuria. I did irrigate the Moreno catheter at bedside as above with no significant clots. We will monitor his urine output. It is unclear to me why an indwelling Moreno catheter was placed, certainly irritation, traumatic tugging of catheter can result in hematuria, likely the patient has a radiation cystitis component. However, other etiologies have been reviewed including occult urothelial carcinoma, TCC. It is unclear to me what is the allergic reaction to IODINE; moreover, patient with renal insufficiency and advanced age. Therefore, CT stone protocol will be obtained for staging. If his non-ST elevated AZ can be managed with baby aspirin, it would be ideal, patient may have recurrent gross hematuria if there is a radiation cystitis component. We will monitor urine and off Coumadin if okay with Cardiology. If subsequent clearing would prefer Coumadin to be held, continue to be held. Elective cystoscopy would be advised, as he recently is admitted for acute AZ as I do not recommend anesthesia given this acute setting. When patient is clinically improved and optimized, elective cystoscopy would be warranted unless there is gross hematuria, with clot retention requiring emergent surgical intervention. We will start Flomax as he does have some irritative obstructive urinary symptoms which are mild. [facility]
[2017-04-30 19:12] LABS: CKMB 3.3 ng/mL (0-6.6)
[2017-04-30 19:15] LABS: Troponin I 0.367 ng/mL (< 0.028)
--- NOTE | 2017-04-30 19:35 | CT ---
EXAM: ABDOMEN CT WITHOUT CONTRAST PELVIC CT WITHOUT CONTRAST 04/30/16 HISTORY: Hematuria. COMPARISON: None. TECHNIQUE: Abdomen and pelvic CT are performed without IV contrast. Coronal reformatted images are submitted for interpretation. FINDINGS: ABDOMEN CT: Chronic changes in the lung bases. Heart is enlarged. There are coronary calcifications. Atherosclero sis of a nonaneurysmal aorta is identified. Significant atherosclerotic disease at the renal and infr arenal aorta is suspected. Symmetric attenuation of the psoas muscles. Mild right psoas muscle atroph y. Gallbladder is unremarkable. Limited evaluation of the solid organs by the lack of IV contrast. 1.6 cm cyst in the left hepatic lo be. Otherwise, the liver, spleen, pancreas and adrenal glands are unremarkable. No gastrohepatic, retrocrural or periportal lymphadenopathy. No mesenteric mass, lymphadenopathy, free air or free fluid. Limited evaluation of the alimentary canal due to the lack of oral contrast administration. Nonspecif ic hyperdense material is ingested and present within the stomach. Duodenum and multiple normal appea ring small bowel loops are noted. Ileocecal junction is normal. Appendix is not appreciated. No infla mmation of the cecal apex. There is fecal material in a nondistended, nondilated colon. CT evidence o f diverticulosis, without evidence of diverticulitis. Bilaterally, no hydronephrosis, nephrolithiasis or perinephric fat stranding. There appear to be nonspecific vascular calcification in the left and right renal pelvis. Bilateral ureters have a normal caliber. No hydroureter, periureteral fat strandi ng or ureterolithiasis. PELVIC CT: Limited evaluation due to beam attenuation artifact. Moreno catheter decompresses the urinary bladder. No pelvic mass, lymphadenopathy, free air or free fluid. There is a moderate compression fracture at the L1 vertebral body level, age indeterminate, likely ch ronic. IMPRESSION: No evidence of nephrolithiasis or obstructive uropathy. POS: [facility]
[2017-04-30] MEDS ORDERED: Lisinopril 5 MG TAB PO SCH (21:00)
[2017-04-30] MEDS: Lisinopril 2.5 MG TAB PO SCH (21:12)
[2017-04-30] MEDS: Atorvastatin Calcium 20 MG TAB PO SCH (21:12)
[2017-04-30] MEDS: guaiFENesin/DM ER PO SCH (21:18)
[2017-05-01 01:20] LABS: Actual Bicarbonate (HCO3a) 32.4 mEq/L (22-26); Base Excess (BEa) 6.2 mEq/L (0 (+/-) 2.5); CO2 Tension 53.4 mmHg (35.0-45.0); O2 Tension (PaO2) 65.7 mmHg (80.0-100.0)
[2017-05-01 01:21] LABS: Hematocrit-ABG 41.9 % (42.0-52.0); Hemoglobin (Hb) 13.6 g/dL (14.0-18.0)
[2017-05-01 01:22] LABS: Calcium, Ionized 1.2 mmol/L (1.12-1.30); Puncture Site RRA
--- NOTE | 2017-05-01 01:26 | PDOC.EVN ---
Event Note - Event Note Event Note: Patient has been having increased work of breathing and shortness of breath throughout the day today. Went to evaluate the patient this evening with Dr. Jarvis and the patient was having abdominal breathing, wheezes, and decreased air movement. The patient's ABG and EKG were okay at that time. Made the decision to move the patient to the IMCU as the patient appeared that he might need BiPAP at some point during the night. Re-evaluated the patient at 0100 and the patient is still having increased work of breathing, wheezes, and decreased air movement. Will repeat an ABG make decision about BiPAP based on that result.
[2017-05-01 05:39] LABS: #Lymphocytes 0.8 thou/uL (1.20-3.40); #Monocytes 0.6 thou/uL (0.11-0.59); #Neutrophils 5.7 thou/uL (1.40-6.50); %Basophils 0.3 % (0.0-1.0); %Eosinophils 0.1 % (0.0-10.0); %Lymphocytes 10.8 % (21.0-51.0); %Monocytes 8.7 % (0.0-10.0); Hemoglobin 14.2 g/dL (14.0-18.0); Mean Corpuscular HGB CONC 33.8 g/dL (32.0-36.0); Mean Corpuscular Hemoglobin 33.7 pg (27.0-31.0); Mean Corpuscular Volume 99.7 fl (80.0-94.0); Platelet Count 168 thou/uL (130-400); Red Blood Cell (RBC) Count 4.21 mill/uL (4.70-6.10); White Blood Cell (WBC) Count 7.2 thou/uL (4.8-10.8)
[2017-05-01 05:43] LABS: Anion Gap 12 mmol/L (10-20); BUN (Urea Nitrogen) 41 mg/dL (8.4-25.7); Calc. Creatinine Clearance 58 mL/min (70-130); Carbon Dioxide 32 mmol/L (23-31); Chloride 99 mmol/L (98-107); Estimated GFR-MDRD 63; Glucose 167 mg/dL (83-110); Potassium 4.7 mmol/L (3.5-5.1); Sodium 138 mmol/L (136-145)
[2017-05-01 05:53] LABS: INR-International Normal Ratio 1.5; PTT 34.4 SEC (22.9-36.1); Prothrombin Time 18.6 SEC (12.0-14.7)
[2017-05-01] MEDS: Budesonide 0.5 MG/2 ML NEB INH SCH ×2 (07:22→18:55)
[2017-05-01] MEDS: Arformoterol 15 MCG/2 ML NEB NEB SCH ×2 (07:22→18:55)
--- NOTE | 2017-05-01 07:28 | PDOC.FM ---
- Subjective Subjective: Patient continues to have increased work of breathing this morning. He was transferred to IMCU overnight 2/2 declining respiratory status. We will go on BiPap this AM and monitor closely. - Objective MAR Reviewed: Yes Vital Signs & Weight: Vital Signs (12 hours) Temp Pulse Resp BP BP Pulse Ox 05/01/17 07:21 79 16 99 05/01/17 04:00 97.6 F 84 18 139/66 96 05/01/17 02:37 81 20 100 05/01/17 00:00 97.2 F L 73 20 116/46 L 100 04/30/17 22:24 86 20 100 04/30/17 21:12 86 158/67 H 04/30/17 20:35 97.6 F 86 20 98 04/30/17 20:00 97.6 F 92 20 129/58 L 98 Weight Weight 90.22 kg Most Recent Monitor Data Heart Rate from ECG 83 NIBP 144/86 NIBP BP-Mean 105 Respiration from ECG 16 SpO2 100 I&O: 04/30/17 05/01/17 05/02/17 06:59 06:59 06:59 Intake Total 1240 654 Output Total 7860 875 Balance -837 -003 Result Diagrams: 05/01/17 03:57 05/01/17 03:57 <Geoffrey Nieves - Last Filed: 05/01/17 07:27> - Objective Vital Signs & Weight: Vital Signs (12 hours) Temp Pulse Resp BP Pulse Ox 05/01/17 10:48 70 05/01/17 10:46 72 18 99 05/01/17 10:40 97.7 F 66 20 129/53 L 98 05/01/17 07:43 97.6 F 92 24 H 99 05/01/17 07:42 97.6 F 77 19 140/57 L 98 05/01/17 07:29 92 05/01/17 07:21 79 16 99 05/01/17 04:00 97.6 F 84 18 139/66 96 05/01/17 02:37 81 20 100 Weight Weight 90.22 kg Most Recent Monitor Data Heart Rate from ECG 83 NIBP 144/86 NIBP BP-Mean 105 Respiration from ECG 16 SpO2 100 I&O: 04/30/17 05/01/17 05/02/17 06:59 06:59 06:59 Intake Total 1240 754 600 Output Total 4161 1925 600 Balance -585 -1171 0 Result Diagrams: 05/01/17 03:57 05/01/17 03:57 <Francesca Jarvisherine - Last Filed: 05/01/17 14:22> Phys Exam - Physical Examination mild distress 2/2 to respiratory effort arcus senilis diffuse wheezing with course crackles bilaterally Cardiovascular: RRR, no significant murmur Gastrointestinal: soft, no distention Neurological: moves all 4 limbs Skin: no rash <Geoffrey Nieves - Last Filed: 05/01/17 07:27> Dx/Plan (1) Acute on chronic systolic heart failure Code(s): I50.23 - ACUTE ON CHRONIC SYSTOLIC (CONGESTIVE) HEART FAILURE Status : Chronic Plan: Patient respiratory distress likely cardiogenic after experiencing NSTEMI during hospitalization. He is being medically managed by Cardiology. He was started on digoxin and plavix on top of home medication regimen. We will continue Lasix 40 IV QD for now. Reassess after trial of BiPap Echo unchanged from previous study- 20% Strict I/O's (2) Gross hematuria Status: Acute Plan: UA shows no infectious process, culture pending CT stone is negative for stone or obstructive pathology Urology has been consulted and is following patient- started Flomax D/c warfarin and monitor for now Patient will need elective cystosopy once discharged (3) Unstable angina Status: Acute Plan: CP at rest on 04/27 resulting in transfer to CCU. Patient was started on nitro gtt, plavix, lisinopril, and spironolactone per Cardiology recommendations. Nitro gtt was turned off 04/28 and patient denies recurrence of chest pain. Continue to follow Dr. Hermosillo recommendations (4) NSTEMI (non-ST elevated myocardial infarction) Code(s): I21.4 - NON-ST ELEVATION (NSTEMI) MYOCARDIAL INFARCTION Status: Acute Plan: Followed by Cardiology See above (5) COPD (chronic obstructive pulmonary disease) Status: Acute Plan: Continue steroids, nebs, and levaquin as respiratory status continues to fluctuate BiPap PRN Pulmonology following Crackles have worsened overnight and breathing more labored this morning than usual (6) CKD (chronic kidney disease) stage 3, GFR 30-59 ml/min Code(s): N18.3 - CHRONIC KIDNEY DISEASE, STAGE 3 (MODERATE) Status: Chronic Plan: Continue to monitor Cr of 1.1 today (7) History of CVA (cerebrovascular accident) Code(s): Z86.73 - PRSNL HX OF TIA (TIA), AND CEREB INFRC W/O RESID DEFICITS Status: Chronic Plan: Continue to monitor and adjust as needed (8) Dyslipidemia Code(s): E78.5 - HYPERLIPIDEMIA, UNSPECIFIED Status: Chronic Plan: Continue statin - Plan Plan: Plan: -patient has worsened clinically compared to previous days -BiPap now with likely increase in lasix dosing -Pulm recommendations <Geoffrey Nieves - Last Filed: 05/01/17 07:27> Attending Addendum - Attending Addendum I personally evaluated the patient and discussed the management with Dr. Nieves. I agree with the History, Examination, Assessment and Plan documented above with any addition or exceptions noted below. The patient was transferred to [facility] last night when I came to evaluate the patient for increased work of breathing. BIPAP has been started and patient's breathing is more comfortable though he is tired this morning. Will continue bipap. appreciate pulmonology recs. May place a palliative care consult. <Asha Jarvis - Last Filed: 05/01/17 14:22>
[2017-05-01] MEDS: Digoxin 0.125 MG TAB PO SCH (08:10)
[2017-05-01] MEDS: Lisinopril 2.5 MG TAB PO SCH ×2 (08:10→20:57)
[2017-05-01] MEDS: Furosemide 40 MG TAB PO SCH (08:11)
[2017-05-01] MEDS: Magnesium Chloride 64 MG TAB PO SCH (08:11)
[2017-05-01] MEDS: Carvedilol 6.25 MG TAB PO SCH ×2 (08:11→17:10)
[2017-05-01] MEDS: predniSONE 20 MG TAB PO SCH ×2 (08:11→17:10)
[2017-05-01] MEDS: Potassium Chloride 20 MEQ TAB PO SCH (08:11)
[2017-05-01] MEDS: Aspirin 81 mg Enteric Coated Tablet PO SCH (08:11)
[2017-05-01] MEDS: Spironolactone 25 MG TAB PO SCH (08:11)
[2017-05-01] MEDS: Tamsulosin HCl 0.4 MG CAP PO SCH (08:11)
[2017-05-01] MEDS: guaiFENesin/DM ER PO SCH ×2 (09:17→20:57)
--- NOTE | 2017-05-01 10:32 | PRG ---
DATE OF SERVICE: 05/01/2017 INPATIENT PROGRESS NOTE SUBJECTIVE: The patient without complaints, , extended family at bedside. He denies abdominal pain, nausea, vomiting. PHYSICAL EXAMINATION: VITAL SIGNS: Stable 97.6, 92, 93% on 3 liters, blood pressure 140/57. I's and O's 1925. GENITOURINARY: Moreno catheter is adequately secured. There is significant clearing of urine. Debo yellow urine noted in the tubing. Urine culture pending. Urinalysis does not demonstrate obvious UTI component. PERTINENT LABORATORY DATA AND IMAGING DATA: Creatinine stable at 1.1, hemoglobin stable at 14. INR this morning is 1.5 with PTT of 34. Coumadin has been held. Currently on baby aspirin for non-ST elevated SC. CT of the abdomen and pelvis stone protocol reviewed which demonstrates no evidence of hydronephrosis, no renal or ureteral calculi. No lymphadenopathy. Prostate is small in size consistent with prior radiation treatment. Bladder is decompressed with indwelling Moreno catheter. No significant lymphadenopathy is appreciated. IMPRESSION AND PLAN: 1. An 89-year-old male admitted for non-ST elevated myocardial infarction, initially treated with Plavix and aspirin, in conjunction with warfarin Currently on baby aspirin. 2. History of chronic obstructive pulmonary disease. 3. History of atrial fibrillation on chronic Coumadin 4 mg 1 p.o. daily, held secondary to gross hematuria. 4. History of prostate cancer, stage unknown, status post radiation in the remote past, treated and evaluated by Dr. Parkinson. 5. Gross hematuria has improved with cessation of Coumadin. CT does not demonstrate obvious pathology of concern. His clinical history is likely consistent with irritation from the Moreno catheter with likely radiation cystitis and prostatic irritation. I do, however, recommend diagnostic cystoscopy at a later date. As the CT does not demonstrate obvious mass concerning for recurrent bleed, may start low dose Coumadin ; avoid supratherapeutic level. I did conference with Dr. Washington yesterday, his non-ST elevated SC can be managed with baby aspirin. Care regarding to avoid supratherapeutic INR and monitor for recurrence of gross hematuria. Daily INR with Coumadin is advised. Continue Flomax. MTDD
--- NOTE | 2017-05-01 11:22 | PRG ---
DATE OF SERVICE: 05/01/2017 SUBJECTIVE: He had to be brought back to the [facility] last night for the purpose of BiPAP. He looks a l ittle better this morning although he is not near as interactive as he had been. PHYSICAL EXAMINATION: VITAL SIGNS: Temperature is 97.6, pulse 72, respirations 18, O2 sat 99% on 3 liters. HEENT: Unremarkable. NECK: No JVD. CHEST: Some coarse upper airway rhonchi. CARDIAC: S1 and S2 regular. ABDOMEN: Soft. EXTREMITIES: No edema. LABORATORY DATA: White blood cell count 7.2, hematocrit 41.9, platelet count 168. INR 1.5, pH 7.40, pCO2 of 53, PO2 of 65. Sodium 138, potassium 4.7, chloride 99, CO2 32, BUN 41, creatinine 1.1, and glucose 167. ASSESSMENT: Mr. Cast is suffering from chronic obstructive pulmonary disease along with significa nt coronary disease and is likely developing episodic flash pulmonary edema from ischemia. RECOMMENDATIONS: This is a tough situation that it is unlikely to improve with aggressive therapy. I would strongly advocate palliative care seeing the patient and transitioning to palliative care typ e mode. We will try to take him off BiPAP today and see how he does, but I do not have any maddie donna t he is going to be very well.
[2017-05-01] MEDS: Atorvastatin Calcium 20 MG TAB PO SCH (20:59)
[2017-05-02 04:29] LABS: #Lymphocytes 0.7 thou/uL (1.20-3.40); #Monocytes 0.7 thou/uL (0.11-0.59); #Neutrophils 7.7 thou/uL (1.40-6.50); %Eosinophils 0.2 % (0.0-10.0); %Lymphocytes 7.5 % (21.0-51.0); %Monocytes 8.1 % (0.0-10.0); %Neutrophils 84.2 % (42.0-75.0); Hemoglobin 14.4 g/dL (14.0-18.0); Mean Corpuscular HGB CONC 33.3 g/dL (32.0-36.0); Mean Corpuscular Hemoglobin 32.8 pg (27.0-31.0); Mean Corpuscular Volume 98.5 fl (80.0-94.0); Mean Platelet Volume 7.7 fL (7.4-10.4); Platelet Count 184 thou/uL (130-400); RBC Distribution Width 11.8 % (11.5-14.5); Red Blood Cell (RBC) Count 4.37 mill/uL (4.70-6.10); White Blood Cell (WBC) Count 9.2 thou/uL (4.8-10.8)
[2017-05-02 04:31] LABS: INR-International Normal Ratio 1.4; PTT 29.5 SEC (22.9-36.1); Prothrombin Time 17.7 SEC (12.0-14.7)
[2017-05-02 04:47] LABS: Anion Gap 11 mmol/L (10-20); BUN (Urea Nitrogen) 37 mg/dL (8.4-25.7); Calc. Creatinine Clearance 64 mL/min (70-130); Carbon Dioxide 33 mmol/L (23-31); Chloride 96 mmol/L (98-107); Estimated GFR-MDRD 70; Glucose 175 mg/dL (83-110); Potassium 4.9 mmol/L (3.5-5.1); Sodium 135 mmol/L (136-145)
--- NOTE | 2017-05-02 07:13 | PDOC.FM ---
- Subjective Subjective: Patient resting comfortably this morning. His work of breathing has improved greatly after requiring BiPap yesterday. He is maintaining oxygen saturation on 2L NC. - Objective MAR Reviewed: Yes Vital Signs & Weight: Vital Signs (12 hours) Temp Pulse Resp BP BP Pulse Ox 05/02/17 04:00 97.0 F L 72 16 141/64 H 100 05/02/17 02:28 82 16 99 05/02/17 00:00 97.4 F L 86 16 123/56 L 100 05/01/17 22:28 74 16 99 05/01/17 20:57 81 142/63 H 05/01/17 20:00 97.4 F L 81 20 123/63 99 Weight Weight 89.312 kg Most Recent Monitor Data Heart Rate from ECG 83 NIBP 144/86 NIBP BP-Mean 105 Respiration from ECG 16 SpO2 100 I&O: 05/01/17 05/02/17 05/03/17 06:59 06:59 06:59 Intake Total 754 970 Output Total 1924 1999 HashTip [id number] Result Diagrams: 05/02/17 03:48 05/02/17 03:48 <Geoffrey Nieves - Last Filed: 05/02/17 07:11> - Objective Vital Signs & Weight: Vital Signs (12 hours) Temp Pulse Resp BP BP Pulse Ox 05/02/17 11:44 98.6 F 75 20 125/47 L 100 05/02/17 11:08 73 21 H 99 05/02/17 08:35 142/63 H 05/02/17 08:00 98.3 F 67 16 100 05/02/17 07:46 98.3 F 67 16 150/67 H 100 05/02/17 07:40 99 05/02/17 07:37 80 18 99 05/02/17 04:00 97.0 F L 72 16 141/64 H 100 05/02/17 02:28 82 16 99 Weight Weight 89.312 kg Most Recent Monitor Data Heart Rate from ECG 83 NIBP 144/86 NIBP BP-Mean 105 Respiration from ECG 16 SpO2 100 I&O: 05/01/17 05/02/17 05/03/17 06:59 06:59 06:59 Intake Total 754 970 840 Output Total 1924 Balance -1172 -1030 290 Result Diagrams: 05/02/17 03:48 05/02/17 03:48 <MatheusAsha dominguez - Last Filed: 05/02/17 14:10> Phys Exam - Physical Examination Constitutional: NAD HEENT: moist MMs expiratory wheezing bilaterally; crackles improved Cardiovascular: RRR, no significant murmur Gastrointestinal: soft, non-tender Neurological: moves all 4 limbs <Geoffrey Nieves - Last Filed: 05/02/17 07:11> Dx/Plan (1) Acute on chronic systolic heart failure Code(s): I50.23 - ACUTE ON CHRONIC SYSTOLIC (CONGESTIVE) HEART FAILURE Status : Chronic Plan: Patient respiratory distress likely cardiogenic after experiencing NSTEMI during hospitalization. He is being medically managed by Cardiology. He was started on digoxin and plavix on top of home medication regimen. We will continue Lasix 40 IV QD for now. BiPap PRN Echo unchanged from previous study- 20% Strict I/O's (2) Gross hematuria Status: Acute Plan: UA shows no infectious process, culture negative so far CT stone is negative for stone or obstructive pathology Urology has been consulted and is following patient- started Flomax D/c warfarin and monitor for now Patient will need elective cystosopy once discharged (3) Unstable angina Status: Acute Plan: CP at rest on 04/27 resulting in transfer to CCU. Patient was started on nitro gtt, plavix, lisinopril, and spironolactone per Cardiology recommendations. Nitro gtt was turned off 04/28 and patient denies recurrence of chest pain. Continue to follow Dr. Hermosillo recommendations (4) NSTEMI (non-ST elevated myocardial infarction) Code(s): I21.4 - NON-ST ELEVATION (NSTEMI) MYOCARDIAL INFARCTION Status: Acute Plan: Followed by Cardiology See above (5) COPD (chronic obstructive pulmonary disease) Status: Acute Plan: Continue steroids, nebs, and levaquin as respiratory status continues to fluctuate BiPap PRN Pulmonology following Crackles and work of breathing have improved after BiPap yesterday; continue to assess need for NIPPV (6) CKD (chronic kidney disease) stage 3, GFR 30-59 ml/min Code(s): N18.3 - CHRONIC KIDNEY DISEASE, STAGE 3 (MODERATE) Status: Chronic Plan: Continue to monitor Cr of 1.0 today (7) History of CVA (cerebrovascular accident) Code(s): Z86.73 - PRSNL HX OF TIA (TIA), AND CEREB INFRC W/O RESID DEFICITS Status: Chronic (8) Dyslipidemia Code(s): E78.5 - HYPERLIPIDEMIA, UNSPECIFIED Status: Chronic Plan: Continue statin - Plan Plan: Plan: -though patients breathing has improved since yesterday, it is likely he will continue to need BiPap -Palliative care consult to discuss goals of care <Geoffrey Nieves - Last Filed: 05/02/17 07:11> Attending Addendum - Attending Addendum I personally evaluated the patient and discussed the management with Dr. Nieves. I agree with the History, Examination, Assessment and Plan documented above with any addition or exceptions noted below. Pt doing well off bipap this morning. My transfer back to tele. Palliative consult was placed yesterday and they should visit with the family today. Pt may require bipap again at some point but doing well now. <Asha Jarvis - Last Filed: 05/02/17 14:10>
[2017-05-02] MEDS: Budesonide 0.5 MG/2 ML NEB INH SCH ×2 (07:39→19:11)
[2017-05-02] MEDS: Arformoterol 15 MCG/2 ML NEB NEB SCH ×2 (07:39→19:11)
[2017-05-02] MEDS: guaiFENesin/DM ER PO SCH ×2 (08:33→20:30)
[2017-05-02] MEDS: Digoxin 0.125 MG TAB PO SCH (08:34)
[2017-05-02] MEDS: Lisinopril 2.5 MG TAB PO SCH ×2 (08:34→20:30)
[2017-05-02] MEDS: Tamsulosin HCl 0.4 MG CAP PO SCH (08:34)
[2017-05-02] MEDS: Potassium Chloride 20 MEQ TAB PO SCH (08:34)
[2017-05-02] MEDS: Spironolactone 25 MG TAB PO SCH (08:34)
[2017-05-02] MEDS: Aspirin 81 mg Enteric Coated Tablet PO SCH (08:35)
[2017-05-02] MEDS: Furosemide 40 MG TAB PO SCH (08:35)
[2017-05-02] MEDS: Magnesium Chloride 64 MG TAB PO SCH (08:35)
[2017-05-02] MEDS: predniSONE 20 MG TAB PO SCH ×2 (08:35→16:04)
[2017-05-02] MEDS: Carvedilol 6.25 MG TAB PO SCH ×2 (08:35→16:04)
--- NOTE | 2017-05-02 12:05 | PRG ---
DATE OF SERVICE: 05/02/2017 SUBJECTIVE: patient is sleeping comfortably, OBJECTIVE: VITAL SIGNS: Stable, afebrile. Is and Os urine output 2 liters, he is -1 liter. ABDOMEN: Soft, nontender, nondistended. : Angel catheter is adequate secured with clear rose urine. PERTINENT LABORATORY DATA: White count 9, hemoglobin 14, platelets 184. INR is 1.4. PTT is 29. Creatinine stable at 1.0. Urine culture is negative. IMPRESSION AND PLAN: Mr. Cast is an 89-year-old male admitted for, 1. Non-ST elevated myocardial infarction, initially treated with Plavix, aspirin, in addition to his home-dose warfarin. He is currently on baby aspirin. 2. History of chronic obstructive pulmonary disease, severe. 3. History of atrial fibrillation on chronic Coumadin, held secondary to gross hematuria. 4. Gross hematuria, likely Angel catheter irritation, may have component of some radiation cystitis changes. 5. History of prostate cancer, stage unknown, status course RT, treated in the remote past. RECOMMENDATIONS: Continue indwelling Angel catheter for now; it is unclear to me why his Angel catheter was initially placed. I did initiate Flomax. His CT demonstrates no significant pathology of concern. recommend elective cystoscopy outpt. Dr. Hermosillo to be back on service tomorrow regarding his disposition regarding reinitiating Coumadin. From a urologic perspective, if Coumadin is reinitiated, must avoid supratherapeutic INR. I would be okay starting Coumadin with close monitoring of his INR. If urine output remains clear, will dc angel. If patient being considered for palliative care, risk of recurrent bleed with anticoagulation chronically needs to be addressed. FREDDIE
--- NOTE | 2017-05-02 12:09 | PRG ---
DATE OF SERVICE: 05/02/2017 SUBJECTIVE: He feels better, had no acute complaints. OBJECTIVE: VITAL SIGNS: Temperature 98.3, pulse 73, blood pressure 142/63 and O2 sat 99% on 2 liters. HEENT: Unremarkable. NECK: No JVD. LUNGS: Coarse breath sounds. CARDIAC: S1 and S2 regular. ABDOMEN: Soft. EXTREMITIES: No edema. LABORATORY DATA: White blood cell count 9.2, hematocrit 43.1 and platelet count 184. Sodium 135, po tassium 4.9, chloride 96, CO2 of 33, BUN 37, creatinine 1.0 and glucose 175. ASSESSMENT: 1. Chronic obstructive pulmonary disease. 2. Flash pulmonary edema likely from cardiac ischemia. RECOMMENDATIONS: It does not appear he need the BiPAP any longer and from my standpoint, could be tr ansferred out to the telemetry unit. Unfortunately, he is likely to have a recurrence of his problem s, but at this time, I think palliative care needs to continue working with the family and hospice ca re needs to be considered.
[2017-05-02] MEDS: Atorvastatin Calcium 20 MG TAB PO SCH (20:30)
[2017-05-03 03:43] LABS: #Lymphocytes 0.6 thou/uL (1.20-3.40); #Monocytes 0.8 thou/uL (0.11-0.59); #Neutrophils 8.9 thou/uL (1.40-6.50); %Basophils 0.4 % (0.0-1.0); %Eosinophils 0.2 % (0.0-10.0); %Neutrophils 85.4 % (42.0-75.0); Hemoglobin 14.4 g/dL (14.0-18.0); Mean Corpuscular HGB CONC 33.9 g/dL (32.0-36.0); Mean Corpuscular Hemoglobin 33.2 pg (27.0-31.0); Mean Corpuscular Volume 97.9 fl (80.0-94.0); Mean Platelet Volume 7.5 fL (7.4-10.4); Platelet Count 200 thou/uL (130-400); RBC Distribution Width 11.6 % (11.5-14.5); Red Blood Cell (RBC) Count 4.33 mill/uL (4.70-6.10); White Blood Cell (WBC) Count 10.4 thou/uL (4.8-10.8)
[2017-05-03 03:48] LABS: INR-International Normal Ratio 1.3; PTT 29.3 SEC (22.9-36.1); Prothrombin Time 16.6 SEC (12.0-14.7)
[2017-05-03 04:03] LABS: Anion Gap 11 mmol/L (10-20); BUN (Urea Nitrogen) 42 mg/dL (8.4-25.7); Calc. Creatinine Clearance 55 mL/min (70-130); Carbon Dioxide 32 mmol/L (23-31); Chloride 95 mmol/L (98-107); Estimated GFR-MDRD 60; Glucose 187 mg/dL (83-110); Potassium 4.7 mmol/L (3.5-5.1); Sodium 133 mmol/L (136-145)
[2017-05-03] MEDS: Potassium Chloride 20 MEQ TAB PO SCH (08:20)
[2017-05-03] MEDS: Digoxin 0.125 MG TAB PO SCH (08:20)
[2017-05-03] MEDS: Tamsulosin HCl 0.4 MG CAP PO SCH (08:20)
[2017-05-03] MEDS: predniSONE 20 MG TAB PO SCH ×2 (08:20→17:07)
[2017-05-03] MEDS: Magnesium Chloride 64 MG TAB PO SCH (08:20)
[2017-05-03] MEDS: guaiFENesin/DM ER PO SCH ×2 (08:21→23:53)
[2017-05-03] MEDS: Aspirin 81 mg Enteric Coated Tablet PO SCH (08:21)
[2017-05-03] MEDS: Furosemide 40 MG TAB PO SCH (08:21)
[2017-05-03] MEDS: Spironolactone 25 MG TAB PO SCH (08:21)
[2017-05-03] MEDS: Carvedilol 6.25 MG TAB PO SCH ×2 (08:23→17:07)
[2017-05-03] MEDS: Lisinopril 2.5 MG TAB PO SCH ×2 (08:24→21:27)
[2017-05-03] MEDS: Budesonide 0.5 MG/2 ML NEB INH SCH ×2 (08:27→19:12)
--- NOTE | 2017-05-03 09:27 | PDOC.FM ---
- Subjective Subjective: Patient much improved this morning. He is breathing well on room air with normal work of breathing. No acute events overnight. - Objective MAR Reviewed: Yes Vital Signs & Weight: Vital Signs (12 hours) Temp Pulse Resp BP BP Pulse Ox 05/03/17 08:27 84 20 97 05/03/17 08:24 86 98/51 L 05/03/17 08:23 122/41 L 05/03/17 08:20 86 05/03/17 08:00 97.9 F 86 20 133/47 L 95 05/03/17 04:00 98.5 F 84 20 117/56 L 95 05/03/17 02:21 86 16 93 L 05/03/17 00:00 98.2 F 87 18 115/49 L 96 05/02/17 22:23 83 16 95 Weight Weight 89.403 kg Most Recent Monitor Data Heart Rate from ECG 83 NIBP 144/86 NIBP BP-Mean 105 Respiration from ECG 16 SpO2 100 I&O: 05/02/17 05/03/17 05/04/17 06:59 06:59 06:59 Intake Total 970 1360 Output Total 1999 1950 Balance -1030 -590 Result Diagrams: 05/03/17 03:18 05/03/17 03:18 <Geoffrey Nieves - Last Filed: 05/03/17 09:25> - Objective Vital Signs & Weight: Vital Signs (12 hours) Temp Pulse Resp BP BP Pulse Ox 05/03/17 11:21 97.8 F 85 20 120/65 99 05/03/17 11:15 76 18 97 05/03/17 08:27 84 20 97 05/03/17 08:24 86 98/51 L 05/03/17 08:23 122/41 L 05/03/17 08:20 86 05/03/17 08:00 97.9 F 86 20 133/47 L 95 05/03/17 04:00 98.5 F 84 20 117/56 L 95 05/03/17 02:21 86 16 93 L 05/03/17 00:00 98.2 F 87 18 115/49 L 96 Weight Weight 89.403 kg Most Recent Monitor Data Heart Rate from ECG 83 NIBP 144/86 NIBP BP-Mean 105 Respiration from ECG 16 SpO2 100 I&O: 05/02/17 05/03/17 05/04/17 06:59 06:59 06:59 Intake Total 970 1360 Output Total 1999 1949 Balance -1030 -590 Result Diagrams: 05/03/17 03:18 05/03/17 03:18 <Marcelino Mayer - Last Filed: 05/03/17 11:34> Phys Exam - Physical Examination Constitutional: NAD HEENT: moist MMs expiratory wheezes bilaterally Cardiovascular: RRR, no significant murmur Gastrointestinal: soft, non-tender Psychiatric: normal affect, A&O x 3 <Geoffery Nieves - Last Filed: 05/03/17 09:25> Dx/Plan (1) Acute on chronic systolic heart failure Code(s): I50.23 - ACUTE ON CHRONIC SYSTOLIC (CONGESTIVE) HEART FAILURE Status : Chronic Plan: Patient respiratory distress likely cardiogenic after experiencing NSTEMI during hospitalization. He is being medically managed by Cardiology. He was started on digoxin and plavix on top of home medication regimen. We will continue Lasix 40 IV QD for now. BiPap PRN Echo unchanged from previous study- 20% Strict I/O's Patient did not require BiPap yesterday or overnight so we will transfer to tele (2) Gross hematuria Status: Acute Plan: UA shows no infectious process, culture negative CT stone is negative for stone or obstructive pathology Urology has been consulted and is following patient- started Flomax D/c warfarin and monitor for now Patient will need elective cystosopy once discharged (3) Unstable angina Status: Acute Plan: CP at rest on 04/27 resulting in transfer to CCU. Patient was started on nitro gtt, plavix, lisinopril, and spironolactone per Cardiology recommendations. Nitro gtt was turned off 04/28 and patient denies recurrence of chest pain. Continue to follow Dr. Hermosillo recommendations (4) NSTEMI (non-ST elevated myocardial infarction) Code(s): I21.4 - NON-ST ELEVATION (NSTEMI) MYOCARDIAL INFARCTION Status: Acute Plan: Followed by Cardiology See above (5) COPD (chronic obstructive pulmonary disease) Status: Acute Plan: Continue steroids, nebs, and levaquin as respiratory status continues to fluctuate BiPap PRN Pulmonology following Crackles and work of breathing have improved, patient no longer requiring oxygen supplementation (6) CKD (chronic kidney disease) stage 3, GFR 30-59 ml/min Code(s): N18.3 - CHRONIC KIDNEY DISEASE, STAGE 3 (MODERATE) Status: Chronic Plan: Continue to monitor Cr of 1.15 today (7) History of CVA (cerebrovascular accident) Code(s): Z86.73 - PRSNL HX OF TIA (TIA), AND CEREB INFRC W/O RESID DEFICITS Status: Chronic (8) Dyslipidemia Code(s): E78.5 - HYPERLIPIDEMIA, UNSPECIFIED Status: Chronic Plan: Continue statin - Plan Plan: Plan: -transfer to tele and monitor breathing, patient has high likelihood of recurrent flash pulmonary edema -Palliative care conference and recommendations <Geoffrey Nieves - Last Filed: 05/03/17 09:25> Attending Addendum - Attending Addendum I personally evaluated the patient and discussed the management with Dr. Nieves. I agree with the History, Examination, Assessment and Plan documented above with any addition or exceptions noted below. We appreciate Cards and Urology care and expertise. <Marcelino Mayer - Last Filed: 05/03/17 11:34>
--- NOTE | 2017-05-03 10:02 | PRG ---
DATE OF SERVICE: 05/03/2017 SUBJECTIVE: Mr. Cast feels better and had no acute complaints. He did not require use of BiPAP l ast night. PHYSICAL EXAMINATION: VITAL SIGNS: His temperature is 97.9, pulse 84, blood pressure 98/51, O2 sat 97%. HEENT: Unremarkable. NECK: No JVD. LUNGS: Clear. No wheezing today. CARDIAC: S1 and S2 regular. ABDOMEN: Soft. EXTREMITIES: No edema. LABORATORY DATA: White blood cell count 10, hematocrit 42, platelet count 200. Sodium 132, potassiu m 4.7, BUN 42, creatinine 1.2, glucose 187. ASSESSMENT: 1. Improved respiratory status. 2. Chronic obstructive pulmonary disease. 3. Status post flash pulmonary edema from cardiac ischemia. PLAN: The patient looks much better and I think he can be transferred to the medical floor or teleme try. Stop the BiPAP at night.
[2017-05-03] MEDS: Arformoterol 15 MCG/2 ML NEB NEB SCH ×2 (11:17→19:22)
[2017-05-03] MEDS: Warfarin Sodium 3 MG TAB PO SCH (17:07)
[2017-05-03] MEDS: Atorvastatin Calcium 20 MG TAB PO SCH (21:27)
[2017-05-04 04:35] LABS: Hemoglobin 14.8 g/dL (14.0-18.0)
[2017-05-04 04:42] LABS: INR-International Normal Ratio 1.2; Prothrombin Time 15.6 SEC (12.0-14.7)
[2017-05-04 04:44] LABS: #Basophils 0.1 thou/uL (0.0-0.2); #Lymphocytes 0.7 thou/uL (1.20-3.40); #Monocytes 1.1 thou/uL (0.11-0.59); #Neutrophils 7.8 thou/uL (1.40-6.50); %Basophils 0.6 % (0.0-1.0); %Eosinophils 0.4 % (0.0-10.0); %Lymphocytes 7.5 % (21.0-51.0); %Monocytes 11.3 % (0.0-10.0); %Neutrophils 80.2 % (42.0-75.0); Hemoglobin 14.9 g/dL (14.0-18.0); Mean Corpuscular HGB CONC 33.4 g/dL (32.0-36.0); Mean Corpuscular Hemoglobin 32.8 pg (27.0-31.0); Mean Corpuscular Volume 98.4 fl (80.0-94.0); Mean Platelet Volume 7.4 fL (7.4-10.4); Platelet Count 211 thou/uL (130-400); RBC Distribution Width 11.6 % (11.5-14.5); Red Blood Cell (RBC) Count 4.55 mill/uL (4.70-6.10); White Blood Cell (WBC) Count 9.8 thou/uL (4.8-10.8)
[2017-05-04 05:04] LABS: Anion Gap 13 mmol/L (10-20); BUN (Urea Nitrogen) 49 mg/dL (8.4-25.7); Calc. Creatinine Clearance 55 mL/min (70-130); Calcium 9.1 mg/dL (7.8-10.44); Carbon Dioxide 32 mmol/L (23-31); Chloride 92 mmol/L (98-107); Estimated GFR-MDRD 59; Glucose 194 mg/dL (83-110); Potassium 4.8 mmol/L (3.5-5.1); Sodium 132 mmol/L (136-145)
[2017-05-04] MEDS ORDERED: Polyethylene Glycol 3350 17 GM Packet PO PRN (07:35)
[2017-05-04] MEDS ORDERED: Warfarin Sodium 3 MG TAB PO SCH (08:00)
--- NOTE | 2017-05-04 08:31 | PRG ---
DATE OF SERVICE: 05/04/2017 SUBJECTIVE: The patient is resting comfortably. PHYSICAL EXAMINATION: VITAL SIGNS: Stable. ABDOMEN: Soft, nontender, nondistended. LABORATORY DATA: INR is 1.2, hemoglobin 14, urine output clear, urine culture negative. IMPRESSION AND PLAN: 1. An 89-year-old male with history of non-ST elevation myocardial infarction, currently on baby asp irin: 2. History of atrial fibrillation on Coumadin held secondary to history of gross hematuria. 3. History of prostate cancer, stage unknown, status post RT treated in the remote past. Previous u rologist, Dr. Parkinson. Currently his hematuria has resolved. CT negative for obvious occult patholog y. His Coumadin has been reinitiated, continue Moreno catheter for now, monitor for recurrence of gross h ematuria. INR is 1.2. Again, please avoid supratherapeutic INR to avoid medical bleed. Elective cy stoscopy outpatient advised.
[2017-05-04] MEDS: Potassium Chloride 20 MEQ TAB PO SCH (08:32)
[2017-05-04] MEDS: Magnesium Chloride 64 MG TAB PO SCH (08:32)
[2017-05-04] MEDS: Tamsulosin HCl 0.4 MG CAP PO SCH (08:32)
[2017-05-04] MEDS: Carvedilol 6.25 MG TAB PO SCH ×3 (08:33→17:15)
[2017-05-04] MEDS: Spironolactone 25 MG TAB PO SCH (08:33)
[2017-05-04] MEDS: Aspirin 81 mg Enteric Coated Tablet PO SCH (08:33)
[2017-05-04] MEDS: Docusate 100 MG CAP PO SCH ×2 (08:33→21:27)
[2017-05-04] MEDS: Digoxin 0.125 MG TAB PO SCH (08:33)
[2017-05-04] MEDS: predniSONE 20 MG TAB PO SCH ×3 (08:33→17:16)
[2017-05-04] MEDS: Furosemide 40 MG TAB PO SCH (08:33)
[2017-05-04] MEDS: Lisinopril 2.5 MG TAB PO SCH ×2 (08:34→21:27)
[2017-05-04] MEDS: guaiFENesin/DM ER PO SCH ×2 (08:34→21:27)
--- NOTE | 2017-05-04 08:43 | PDOC.FM ---
- Subjective Subjective: Patient resting comfortably this morning. Maintaining oxygen saturation on room air. No acute events overnight. Afebrile, VSS - Objective MAR Reviewed: Yes Vital Signs & Weight: Vital Signs (12 hours) Temp Pulse Resp BP BP Pulse Ox 05/04/17 08:34 84 05/04/17 08:33 84 98/51 L 05/04/17 07:32 97.6 F 84 20 128/54 L 99 05/04/17 03:42 98.8 F 82 20 134/72 97 05/04/17 02:34 83 20 99 05/04/17 00:00 98.6 F 86 16 108/57 L 95 05/03/17 22:22 80 18 98 05/03/17 21:27 84 Weight Weight 91.716 kg Most Recent Monitor Data Heart Rate from ECG 83 NIBP 144/86 NIBP BP-Mean 105 Respiration from ECG 16 SpO2 100 I&O: 05/03/17 05/04/17 05/05/17 06:59 06:59 06:59 Intake Total 1360 960 Output Total 1950 2850 Balance -590 -7550 Result Diagrams: 05/04/17 04:13 05/04/17 04:13 <Geoffrey Nieves - Last Filed: 05/04/17 08:41> - Objective Vital Signs & Weight: Vital Signs (12 hours) Temp Pulse Resp BP BP Pulse Ox 05/04/17 08:34 84 05/04/17 08:33 84 98/51 L 05/04/17 08:00 97.6 F 84 18 98 05/04/17 07:32 97.6 F 84 20 128/54 L 99 05/04/17 03:42 98.8 F 82 20 134/72 97 05/04/17 02:34 83 20 99 05/04/17 00:00 98.6 F 86 16 108/57 L 95 Weight Weight 91.716 kg Most Recent Monitor Data Heart Rate from ECG 83 NIBP 144/86 NIBP BP-Mean 105 Respiration from ECG 16 SpO2 100 I&O: 05/03/17 05/04/17 05/05/17 06:59 06:59 06:59 Intake Total 1360 960 Output Total 1950 2850 300 Balance -590 -1890 -300 Result Diagrams: 05/04/17 04:13 05/04/17 04:13 <MorenoMarcelino A - Last Filed: 05/04/17 10:47> Phys Exam - Physical Examination Constitutional: NAD HEENT: moist MMs Respiratory: no rales mild expiratory wheezes Cardiovascular: RRR, no significant murmur Gastrointestinal: soft, non-tender Neurological: moves all 4 limbs Psychiatric: normal affect, A&O x 3 <Geoffrey Nieves Jade - Last Filed: 05/04/17 08:41> Dx/Plan (1) Acute on chronic systolic heart failure Code(s): I50.23 - ACUTE ON CHRONIC SYSTOLIC (CONGESTIVE) HEART FAILURE Status : Chronic Plan: Patient respiratory distress likely cardiogenic after experiencing NSTEMI during hospitalization. He is being medically managed by Cardiology. He was started on digoxin and plavix on top of home medication regimen. We will continue Lasix 40 IV QD for now. BiPap PRN Echo unchanged from previous study- 20% Patient did not require BiPap yesterday or overnight so we will transfer to tele (2) Gross hematuria Status: Acute Plan: UA shows no infectious process, culture negative CT stone is negative for stone or obstructive pathology Urology has been consulted and is following patient- started Flomax Patient will need elective cystosopy once discharged (3) Unstable angina Status: Acute Plan: CP at rest on 04/27 resulting in transfer to CCU. Patient was started on nitro gtt, plavix, lisinopril, and spironolactone per Cardiology recommendations. Nitro gtt was turned off 04/28 and patient denies recurrence of chest pain. Continue to follow Dr. Hermosillo recommendations (4) NSTEMI (non-ST elevated myocardial infarction) Code(s): I21.4 - NON-ST ELEVATION (NSTEMI) MYOCARDIAL INFARCTION Status: Acute Plan: Followed by Cardiology See above (5) COPD (chronic obstructive pulmonary disease) Status: Acute Plan: Continue steroids, nebs BiPap PRN Pulmonology following Crackles and work of breathing have improved, patient no longer requiring oxygen supplementation (6) CKD (chronic kidney disease) stage 3, GFR 30-59 ml/min Code(s): N18.3 - CHRONIC KIDNEY DISEASE, STAGE 3 (MODERATE) Status: Chronic Plan: Continue to monitor Cr of 1.16 today (7) History of CVA (cerebrovascular accident) Code(s): Z86.73 - PRSNL HX OF TIA (TIA), AND CEREB INFRC W/O RESID DEFICITS Status: Chronic Plan: Continue warfarin and adjust as needed (8) Dyslipidemia Code(s): E78.5 - HYPERLIPIDEMIA, UNSPECIFIED Status: Chronic Plan: Continue statin - Plan Plan: Plan: -transfer to tele and monitor respiratory status -continue palliative care meetings regarding AD, MPOA -placement <Geoffrey Nieves - Last Filed: 05/04/17 08:41> Attending Addendum - Attending Addendum I personally evaluated the patient and discussed the management with Dr. Nieves. I agree with the History, Examination, Assessment and Plan documented above with any addition or exceptions noted below. <Marcelino Mayer - Last Filed: 05/04/17 10:47>
--- NOTE | 2017-05-04 09:42 | PRG ---
DATE OF SERVICE: 05/04/2017 SUBJECTIVE: Mr. Cast says he feels better, he has no acute complaints. OBJECTIVE: VITAL SIGNS: Temperature 97.6, pulse 84, blood pressure 98/51, sat 98%. HEENT: Unremarkable. NECK: No JVD. LUNGS: Fairly clear without wheezing. CARDIAC: S1 and S2 regular. ABDOMEN: Soft. EXTREMITIES: No edema. ASSESSMENT: 1. Chronic obstructive pulmonary disease with exacerbation. 2. Status post flash pulmonary edema. PLAN: Increase activity as tolerated. I think he can be moved to the medical floor. BiPAP has been stopped at night.
[2017-05-04] MEDS: Budesonide 0.5 MG/2 ML NEB INH SCH ×2 (11:10→18:36)
[2017-05-04] MEDS: Arformoterol 15 MCG/2 ML NEB NEB SCH ×2 (11:11→18:36)
[2017-05-04] MEDS: Warfarin Sodium 3 MG TAB PO SCH ×2 (17:10→17:16)
[2017-05-04] MEDS: Atorvastatin Calcium 20 MG TAB PO SCH (21:27)
[2017-05-05 05:02] LABS: INR-International Normal Ratio 1.3
[2017-05-05 05:09] LABS: Anion Gap 12 mmol/L (10-20); BUN (Urea Nitrogen) 58 mg/dL (8.4-25.7); Calc. Creatinine Clearance 47 mL/min (70-130); Carbon Dioxide 32 mmol/L (23-31); Chloride 94 mmol/L (98-107); Estimated GFR-MDRD 48; Glucose 150 mg/dL (83-110); Potassium 4.2 mmol/L (3.5-5.1); Sodium 134 mmol/L (136-145)
[2017-05-05 05:33] LABS: Band 3 % (5-11); Hemoglobin 14.8 g/dL (14.0-18.0); Lymphocytes 12 % (21-51); MDiff Complete? YES; Macrocytosis SLIGHT = 6-15 cells (100X) (0-5/hpf); Mean Corpuscular HGB CONC 34.3 g/dL (32.0-36.0); Mean Corpuscular Hemoglobin 33.3 pg (27.0-31.0); Mean Corpuscular Volume 97.2 fl (80.0-94.0); Mean Platelet Volume 7.5 fL (7.4-10.4); Metamyelocyte 1 % (0-0); Monocytes 12 % (0-10); Neutrophil 72 % (42-75); PLT Morphology Comment Appears Adequate; Platelet Count 228 thou/uL (130-400); RBC Distribution Width 11.7 % (11.5-14.5); Red Blood Cell (RBC) Count 4.45 mill/uL (4.70-6.10); White Blood Cell (WBC) Count 11.5 thou/uL (4.8-10.8)
[2017-05-05] MEDS: Arformoterol 15 MCG/2 ML NEB NEB SCH ×2 (06:28→18:53)
[2017-05-05] MEDS: Budesonide 0.5 MG/2 ML NEB INH SCH ×2 (06:30→18:53)
--- NOTE | 2017-05-05 08:52 | PDOC.FM ---
- Subjective Subjective: Patient sleeping this morning, hard to arouse. He will answer questions appropriately, but would like to sleep. No acute events overnight per nursing. Afebrile, VSS - Objective MAR Reviewed: Yes Vital Signs & Weight: Vital Signs (12 hours) Temp Pulse Resp BP Pulse Ox 05/05/17 07:25 97.9 F 89 20 95 05/05/17 07:23 97.9 F 89 20 115/57 L 95 05/05/17 06:31 72 16 92 L 05/05/17 06:30 72 16 92 L 05/05/17 06:28 72 16 92 L 05/05/17 03:45 98 F 60 18 109/52 L 92 L 05/05/17 02:19 82 14 90 L 05/04/17 22:21 81 16 92 L Weight Weight 85.956 kg Most Recent Monitor Data Heart Rate from ECG 83 NIBP 144/86 NIBP BP-Mean 105 Respiration from ECG 16 SpO2 100 I&O: 05/04/17 05/05/17 05/06/17 06:59 06:59 06:59 Intake Total 960 0 Output Total 2850 300 Balance -1890 -300 Result Diagrams: 05/05/17 04:15 05/05/17 04:15 <Geoffrey Nieves - Last Filed: 05/05/17 08:49> - Objective Vital Signs & Weight: Vital Signs (12 hours) Temp Pulse Resp BP Pulse Ox 05/05/17 11:00 97.0 F L 93 20 84/54 L 99 05/05/17 07:25 97.9 F 89 20 95 05/05/17 07:23 97.9 F 89 20 115/57 L 95 05/05/17 06:31 72 16 92 L 05/05/17 06:30 72 16 92 L 05/05/17 06:28 72 16 92 L 05/05/17 03:45 98 F 60 18 109/52 L 92 L 05/05/17 02:19 82 14 90 L Weight Weight 85.956 kg Most Recent Monitor Data Heart Rate from ECG 83 NIBP 144/86 NIBP BP-Mean 105 Respiration from ECG 16 SpO2 100 I&O: 05/04/17 05/05/17 05/06/17 06:59 06:59 06:59 Intake Total 960 0 Output Total 2850 300 Balance -1890 -300 Result Diagrams: 05/05/17 04:15 05/05/17 04:15 <MorenoRonaldoMarcelino A - Last Filed: 05/05/17 11:39> Phys Exam - Physical Examination Constitutional: NAD dry mucous membranes Neck: no JVD Respiratory: no rales mild expiratory wheezes Cardiovascular: RRR, no significant murmur Gastrointestinal: soft, non-tender Neurological: moves all 4 limbs Psychiatric: normal affect, A&O x 3 <Geoffrey Nieves - Last Filed: 05/05/17 08:49> Dx/Plan (1) Acute on chronic systolic heart failure Code(s): I50.23 - ACUTE ON CHRONIC SYSTOLIC (CONGESTIVE) HEART FAILURE Status : Chronic Plan: Patient respiratory distress likely cardiogenic after experiencing NSTEMI during hospitalization. He is being medically managed by Cardiology. He was started on digoxin and plavix on top of home medication regimen. We will continue Lasix 40 IV QD for now. BiPap PRN Echo unchanged from previous study- 20% Patient has not required BiPap for several days now. We are getting ready discharge pending a speech evaluation (2) Gross hematuria Status: Resolved Plan: UA shows no infectious process, culture negative CT stone is negative for stone or obstructive pathology Urology has been consulted and is following patient- started Flomax Patient will need elective cystosopy once discharged (3) Unstable angina Status: Acute Plan: CP at rest on 04/27 resulting in transfer to CCU. Patient was started on nitro gtt, plavix, lisinopril, and spironolactone per Cardiology recommendations. Nitro gtt was turned off 04/28 and patient denies recurrence of chest pain. Continue to follow Dr. Hermosillo recommendations (4) NSTEMI (non-ST elevated myocardial infarction) Code(s): I21.4 - NON-ST ELEVATION (NSTEMI) MYOCARDIAL INFARCTION Status: Acute Plan: Followed by Cardiology See above (5) COPD (chronic obstructive pulmonary disease) Status: Acute Plan: Continue steroids, nebs BiPap PRN Pulmonology following Crackles and work of breathing have improved, patient no longer requiring oxygen supplementation (6) CKD (chronic kidney disease) stage 3, GFR 30-59 ml/min Code(s): N18.3 - CHRONIC KIDNEY DISEASE, STAGE 3 (MODERATE) Status: Chronic Plan: Continue to monitor Cr of 1.33 today, decline in kidney function 2/2 to NPO status for evaluation of aspiration (7) History of CVA (cerebrovascular accident) Code(s): Z86.73 - PRSNL HX OF TIA (TIA), AND CEREB INFRC W/O RESID DEFICITS Status: Chronic Plan: Continue warfarin and adjust as needed (8) Dyslipidemia Code(s): E78.5 - HYPERLIPIDEMIA, UNSPECIFIED Status: Chronic Plan: Continue statin - Plan Plan: Plan: -Spoke with speech this morning, they are currently evaluating him for possible aspiration risk -Patient otherwise stable medically-breathing has improved and he has not required BiPap; still at high risk for flash pulmonary edema from his cardiac issues -placement likely in [place] <Geoffrey Nieves - Last Filed: 05/05/17 08:49> Attending Addendum - Attending Addendum I personally evaluated the patient and discussed the management with Dr. Nieves. I agree with the History, Examination, Assessment and Plan documented above with any addition or exceptions noted below. Patient has had mental status change this morning, with concern for stroke. Dr Nieves evaluated at the time of a Code green this morning. I evaluated the patient after his CT scan. After discussions with his and the stroke team, the risks of a CTA outweigh the possible benefit of demonstrating a thrombus that could be removed. Metabolic workup for metal status change is ongoing. Appreciate the stroke team's care and input. They concur with plan. <Marcelino Mayer - Last Filed: 05/05/17 11:39>
--- NOTE | 2017-05-05 09:39 | CT ---
CT BRAIN WITHOUT CONTRAST: Comparison: 04-15-13 History: Stroke activation, low oxygen saturation. Change in mental status. Technique: Multiple contiguous axial images were obtained in a CT of the brain without contrast. FINDINGS: There are scattered hypodensities in the subcortical and periventricular white matter. No large confl uent infarction is seen. There is no evidence of hydrocephalus, intracranial hemorrhage, or extraaxia l fluid collection. Calvarium and overlying soft tissues are unremarkable. The visualized paranasal sinuses and mastoid a ir cells are well aerated. IMPRESSION: No evidence of acute intracranial abnormality. Dr. Collazo notified of the findings at 9:35 a.m. on 05-05-17. POS: [facility]
[2017-05-05 09:59] LABS: INR-International Normal Ratio 1.3; PTT 26.6 SEC (22.9-36.1); Prothrombin Time 16.1 SEC (12.0-14.7)
[2017-05-05] MEDS ORDERED: diphenhydrAMINE 50 MG/ML VIAL ONE (10:04)
[2017-05-05] MEDS ORDERED: methylPREDNISolone Sod Succ/PF 125 MG/2 ML VIAL ONE (10:04)
[2017-05-05] MEDS ORDERED: Famotidine/PF 20 mg/2ml Vial ONE (10:04)
[2017-05-05 10:14] LABS: Troponin I 0.151 ng/mL (< 0.028)
--- NOTE | 2017-05-05 11:40 | PRG ---
DATE OF SERVICE: 05/05/2017 SUBJECTIVE: The patient was transferred back to [facility] due to mental status changes, stat brain CT is negative for cerebrovascular accident. PHYSICAL EXAMINATION: VITAL SIGNS: Stable. He is incontinent, urine output has been clear. ABDOMEN: Soft, nontender, nondistended. No suprapubic tenderness is appreciated. SIGNIFICANT LABORATORY DATA: INR is 1.3. IMPRESSION AND PLAN: 1. Mr. Cast is an 89-year-old male, deconditioned, with history of severe chronic obstructive pulmonary disease. 2. Non-ST elevated myocardial infarction currently on baby aspirin. 3. History of atrial fibrillation, on Coumadin, held secondary to history of gross hematuria. 4. Indwelling Moreno catheter has been removed. Urine output remains clear with history of prostate cancer, stage unknown, status post RT. The patient's overall prognosis is guarded, Pulmonology was previously considering palliative hospice care. Final disposition pending. Disposition per primary service. We will continue to monitor for recurrent gross hematuria as Coumadin has been reinitiated. MTDD
--- NOTE | 2017-05-05 11:41 | PDOC.PULPN ---
Progress Note: Subj/Obj - Subjective Date: 05/05/17 Time: 11:39 Narrative: stroke alert called earlier today. Pt lethargic again, but non focal - Objective Allergies/Adverse Reactions: Allergies Allergy/AdvReac Type Severity Reaction Status Date / Time iodine Allergy Verified 08/26/14 13:52 shellfish derived Allergy Verified 08/26/14 13:52 Tetanus Vaccines and Toxoid Allergy Verified 08/26/14 13:52 [Tetanus Vaccines & Toxoid] Medications: Current Medications Acetaminophen (Tylenol) 650 mg PO Q4H PRN PRN Reason: Headache/Fever or Pain Last Admin: 04/28/17 03:55 Dose: 650 mg Albuterol/Ipratropium (Duoneb) 3 ml EZPAP [id number] Last Admin: 05/05/17 10:53 Dose: Not Given Arformoterol Tartrate (Brovana) 15 mcg NEB BID-RT ASHISH Last Admin: 05/05/17 06:28 Dose: 15 mcg Aspirin (Ecotrin) 81 mg PO DAILY [facility] Last Admin: 05/04/17 08:33 Dose: 81 mg Atorvastatin Calcium (Lipitor) 20 mg PO HS [facility] Last Admin: 05/04/17 21:27 Dose: Not Given Budesonide (Pulmicort Neb Solution) 0.5 mg INH BID-RT [facility] Last Admin: 05/05/17 06:30 Dose: 0.5 mg Carvedilol (Coreg) 6.25 mg PO BID-[facility] Last Admin: 05/04/17 17:15 Dose: Not Given Digoxin (Lanoxin) 0.125 mg PO QAM [facility] Last Admin: 05/04/17 08:33 Dose: 0.125 mg Docusate Sodium (Colace) 100 mg PO BID [facility] Last Admin: 05/04/17 21:27 Dose: Not Given Furosemide (Lasix) 40 mg PO 0900 [facility] Last Admin: 05/04/17 08:33 Dose: 40 mg Guaifenesin/Dextromethorphan (Mucinex Dm) 1 tab PO Q12HR [facility] Last Admin: 05/04/17 21:27 Dose: Not Given Hydralazine HCl (Apresoline) 10 mg SLOW IVP Q15MIN PRN PRN Reason: SBP Greater Than 170 Last Admin: 04/27/17 16:02 Dose: 10 mg Isosorbide Mononitrate (Imdur Er) 30 mg PO DAILY [facility] Last Admin: 05/04/17 08:33 Dose: 30 mg Levofloxacin (Levaquin) 750 mg PO 1500 [facility] Last Admin: 05/04/17 20:16 Dose: Not Given Lisinopril (Zestril) 2.5 mg PO BID [facility] Last Admin: 05/04/17 21:27 Dose: Not Given Magnesium Chloride (Slow-Mag) 64 mg PO DAILY [facility] Last Admin: 05/04/17 08:32 Dose: 64 mg Melatonin (Melatonin) 3 mg PO HSPRN PRN PRN Reason: Insomnia Last Admin: 04/28/17 22:47 Dose: 3 mg Nitroglycerin (Nitrostat) 0.4 mg SL Q5MIN PRN PRN Reason: Chest Pain Ondansetron HCl (Zofran Odt) 4 mg PO Q6H PRN PRN Reason: Nausea/Vomiting Pantoprazole Sodium (Protonix) 40 mg PO BID [facility] Last Admin: 05/04/17 21:27 Dose: Not Given Phenol (Chloraseptic [place] 180 Ml Bot) 1 ml PO BIDPRN PRN PRN Reason: Sore Throat Polyethylene Glycol (Miralax) 17 gm PO DAILYPRN PRN PRN Reason: Constipation Potassium Chloride (K-Dur) 20 meq PO DAILY [facility] Last Admin: 05/04/17 08:32 Dose: 20 meq Prednisone (Prednisone) 20 mg PO BID-[facility] Last Admin: 05/04/17 17:16 Dose: Not Given Ranolazine (Ranexa) 1,000 mg PO BID [facility] Last Admin: 05/04/17 21:28 Dose: Not Given Sodium Chloride (Flush - Normal Saline) 10 ml IVF Q12HR [facility] Last Admin: 05/04/17 21:31 Dose: 10 ml Sodium Chloride (Flush - Normal Saline) 10 ml IVF PRN PRN PRN Reason: Saline Flush Spironolactone (Aldactone) 25 mg PO QAM-[facility] Last Admin: 05/04/17 08:33 Dose: 25 mg Tamsulosin HCl (Flomax) 0.4 mg PO DAILY [facility] Last Admin: 05/04/17 08:32 Dose: 0.4 mg Warfarin Sodium (Coumadin) 3 mg PO 1700 [facility] Last Admin: 05/04/17 17:16 Dose: Not Given Vital Signs: Vital Signs Temp 97.0 F L 05/05/17 11:00 Pulse 93 05/05/17 11:00 Resp 20 05/05/17 11:00 BP 84/54 L 05/05/17 11:00 Pulse Ox 99 05/05/17 11:00 Intake & Output 05/04/17 05/05/17 05/05/17 18:59 06:59 18:59 Intake Total 0 Output Total 300 Balance -300 0 Weight 189 lb 8 oz Intake: Oral 0 Output: Output, [place] 300 Other: Voiding Method Indwelling Catheter Diaper Diaper # Urine Diapers 1 3 Progress Note: Exam - Physical Exam Deviation from normal: altered MS HEENT: PERRLA, sclera anicteric Neck: no JVD Cardiovascular: RRR Respiratory: rales Gastrointestinal: soft, non-tender Musculoskeletal: no edema Neurological: non-focal, moves all 4 limbs Skin: no rash Progress Note: Data - Labs Result Diagrams: 05/05/17 04:15 05/05/17 04:15 Lab results: Laboratory Results 05/04/17 05/04/17 05/04/17 04:13 04:13 04:13 WBC 9.8 RBC 4.55 L Hgb 14.8 14.9 Hct 43.6 44.7 MCV 98.4 H MCH 32.8 H MCHC 33.4 RDW 11.6 Plt Count 211 MPV 7.4 Neutrophils % 80.2 H Neutrophils % (Manual) Band Neuts % (Manual) Lymphocytes % 7.5 L Lymphocytes % (Manual) Monocytes % 11.3 H Monocytes % (Manual) Eosinophils % 0.4 Basophils % 0.6 Metamyelocytes % (Man) Neutrophils # 7.8 H Lymphocytes # 0.7 L Monocytes # 1.1 H Eosinophils # 0.0 Basophils # 0.1 Plt Morphology Comment Macrocytosis PT INR APTT Sodium 132 L Potassium 4.8 Chloride 92 L Carbon Dioxide 32 H Anion Gap 13 BUN 49 H Creatinine 1.16 Estimated GFR (MDRD) 59 Glucose 194 H Calcium 9.1 Creatine Kinase CK-MB (CK-2) Troponin I Total Beta HCG 05/04/17 05/05/17 05/05/17 04:13 04:15 04:15 WBC 11.5 H RBC 4.45 L Hgb 14.8 Hct 43.2 MCV 97.2 H MCH 33.3 H MCHC 34.3 RDW 11.7 Plt Count 228 MPV 7.5 Neutrophils % Neutrophils % (Manual) 72 Band Neuts % (Manual) 3 L Lymphocytes % Lymphocytes % (Manual) 12 L Monocytes % Monocytes % (Manual) 12 H Eosinophils % Basophils % Metamyelocytes % (Man) 1 H Neutrophils # Lymphocytes # Monocytes # Eosinophils # Basophils # Plt Morphology Comment Appears Adequate Macrocytosis SLIGHT = 6-15 cells PT 15.6 H INR 1.2 APTT Sodium 134 L Potassium 4.2 Chloride 94 L Carbon Dioxide 32 H Anion Gap 12 BUN 58 H Creatinine 1.39 H Estimated GFR (MDRD) 48 Glucose 150 H Calcium 9.0 Creatine Kinase CK-MB (CK-2) Troponin I Total Beta HCG 05/05/17 05/05/17 05/05/17 04:15 09:13 09:13 WBC RBC Hgb Hct MCV MCH MCHC RDW Plt Count MPV Neutrophils % Neutrophils % (Manual) Band Neuts % (Manual) Lymphocytes % Lymphocytes % (Manual) Monocytes % Monocytes % (Manual) Eosinophils % Basophils % Metamyelocytes % (Man) Neutrophils # Lymphocytes # Monocytes # Eosinophils # Basophils # Plt Morphology Comment Macrocytosis PT 16.0 H INR 1.3 APTT Sodium Potassium Chloride Carbon Dioxide Anion Gap BUN Creatinine Estimated GFR (MDRD) Glucose Calcium Creatine Kinase 44 CK-MB (CK-2) 3.0 Troponin I 0.151 H Total Beta HCG 05/05/17 05/05/17 09:13 09:13 WBC RBC Hgb Hct MCV MCH MCHC RDW Plt Count MPV Neutrophils % Neutrophils % (Manual) Band Neuts % (Manual) Lymphocytes % Lymphocytes % (Manual) Monocytes % Monocytes % (Manual) Eosinophils % Basophils % Metamyelocytes % (Man) Neutrophils # Lymphocytes # Monocytes # Eosinophils # Basophils # Plt Morphology Comment Macrocytosis PT 16.1 H INR 1.3 APTT 26.6 Sodium Potassium Chloride Carbon Dioxide Anion Gap BUN Creatinine Estimated GFR (MDRD) Glucose Calcium Creatine Kinase CK-MB (CK-2) Troponin I Total Beta HCG 3.34 Progress Note: A/P - Problems (1) Chronic obstructive pulmonary disease with acute exacerbation Current Visit: Yes Status: Acute Code(s): J44.1 - CHRONIC OBSTRUCTIVE PULMONARY DISEASE W (ACUTE) EXACERBATION (2) CHOLO (acute kidney injury) Current Visit: No Status: Acute Code(s): N17.9 - ACUTE KIDNEY FAILURE, UNSPECIFIED (3) Acute on chronic systolic heart failure Current Visit: No Status: Chronic Code(s): I50.23 - ACUTE ON CHRONIC SYSTOLIC (CONGESTIVE) HEART FAILURE (4) Angina at rest Current Visit: No Status: Acute Code(s): I20.8 - OTHER FORMS OF ANGINA PECTORIS - Plan Plan: I believe the patient is end-of-life in terms of his medical problems He can't seem to do well for more than a couple of hours, without having a set back I would advise hospice care
--- NOTE | 2017-05-05 11:46 | PDOC.EVN ---
Event Note - Event Note Event Note: Ca lai called on patient at approximately 09:00. Patient was being evaluated by Cardiology who reports AMS and suspicion for CVA considering his prior history. NIH initially of 3. CT head was performed that was negative for hemorrhage. Patient with increasing respiratory difficulty and inability to answer questions. Risk and benefits of a CTA of head was discussed with family members. The patient has had a recent NSTEMI with flash pulmonary edema requiring NIPPV and cannot tolerate fluid bolus without respiratory difficulty. Also, his kidney function has continued to decline with a eGFR around 45. Patient is allergic to contrast and would require higher than normal amounts of fluids for pre- medication, making the proposition of a CTA very risky. Patient would likely not be medically stable for transfer if a thrombectomy was indicated. Therefore , the family has elected to skip the imaging studies and provide supportive care. We will draw appropriate labs at this time and anticipate patients need for BiPap if respiratory status declines.
[2017-05-05] MEDS: Carvedilol 6.25 MG TAB PO SCH ×2 (12:17→17:07)
[2017-05-05] MEDS: Aspirin 81 mg Enteric Coated Tablet PO SCH (12:17)
[2017-05-05] MEDS: Spironolactone 25 MG TAB PO SCH (12:17)
[2017-05-05] MEDS: predniSONE 20 MG TAB PO SCH ×2 (12:17→17:08)
[2017-05-05] MEDS: Digoxin 0.125 MG TAB PO SCH (12:17)
[2017-05-05] MEDS: Furosemide 40 MG TAB PO SCH (12:30)
[2017-05-05] MEDS: Lisinopril 2.5 MG TAB PO SCH ×2 (12:30→20:41)
[2017-05-05] MEDS: guaiFENesin/DM ER PO SCH ×2 (12:30→20:41)
[2017-05-05] MEDS: Docusate 100 MG CAP PO SCH ×2 (12:30→20:41)
[2017-05-05] MEDS: Magnesium Chloride 64 MG TAB PO SCH (12:31)
[2017-05-05] MEDS: Potassium Chloride 20 MEQ TAB PO SCH (12:31)
[2017-05-05] MEDS: Tamsulosin HCl 0.4 MG CAP PO SCH (12:31)
--- NOTE | 2017-05-05 12:40 | PRG ---
DATE OF SERVICE: 05/05/2017 SUBJECTIVE: The patient was in telemetry, transferred back to [facility] due to mental status changes. Brain CT negative for acute CVA. OBJECTIVE: VITAL SIGNS: 97, 93, 99% on 2 liters. I's and O's, the patient is incontinent. Urine output has been clear. ABDOMEN: Soft, nontender, nondistended. LABORATORY DATA: White count 11, hemoglobin 14, platelets 228. INR 1.3, PTT is 26, creatinine 1.39, BUN 58. IMPRESSION AND PLAN: 1. Mr. Cast is an 89-year-old male with history of severe chronic obstructive pulmonary disease. 2. Recent non-ST myocardial infarction. On baby aspirin. 3. History of atrial fibrillation. On Coumadin secondary to history of gross hematuria, Coumadin has recently been re-initiated. INR subtherapeutic, urine output remains clear. Will follow. MTDD
--- NOTE | 2017-05-05 13:16 | RAD ---
PORTABLE CHEST ONE VIEW: 05/05/2017 12:20 p.m. HISTORY: Respiratory distress. COMPARISON: 04/30/2017 FINDINGS: There is continued elevation of the right hemidiaphragm. The heart size is prominent but stable. Th ere are atelectatic change in the right lung base. No pneumothoraces or large effusions are seen. T here is no evidence of eusebio pulmonary edema. Degenerative changes are seen in the acromioclavicular joints. There are postop changes of right rotator cuff repair. POS: [facility]
[2017-05-05 16:38] LABS: Actual Bicarbonate (HCO3a) 29.2 mEq/L (22-26); Base Excess (BEa) 4.1 mEq/L (0 (+/-) 2.5); CO2 Tension 44.9 mmHg (35.0-45.0); Hematocrit-ABG 47.4 % (42.0-52.0); Hemoglobin (Hb) 15.5 g/dL (14.0-18.0); O2 Tension (PaO2) 71.1 mmHg (80.0-100.0); pH, Arterial 7.43 (7.35-7.45)
[2017-05-05 16:39] LABS: ALV-art Gradient 102.535 (0-20); Calcium, Ionized 1.2 mmol/L (1.12-1.30); Puncture Site L.B.
[2017-05-05] MEDS: Warfarin Sodium 3 MG TAB PO SCH (17:08)
[2017-05-05] MEDS: Atorvastatin Calcium 20 MG TAB PO SCH (20:41)
[2017-05-06 04:57] LABS: #Lymphocytes 0.6 thou/uL (1.20-3.40); #Monocytes 1.2 thou/uL (0.11-0.59); #Neutrophils 13.4 thou/uL (1.40-6.50); %Basophils 0.1 % (0.0-1.0); %Eosinophils 0.2 % (0.0-10.0); %Lymphocytes 4.1 % (21.0-51.0); %Monocytes 8.1 % (0.0-10.0); %Neutrophils 87.6 % (42.0-75.0); Hemoglobin 15.8 g/dL (14.0-18.0); Mean Corpuscular HGB CONC 33.6 g/dL (32.0-36.0); Mean Corpuscular Volume 98.2 fl (80.0-94.0); Mean Platelet Volume 7.5 fL (7.4-10.4); Platelet Count 235 thou/uL (130-400); RBC Distribution Width 11.8 % (11.5-14.5); White Blood Cell (WBC) Count 15.3 thou/uL (4.8-10.8)
[2017-05-06 04:58] LABS: INR-International Normal Ratio 1.3; Prothrombin Time 16.5 SEC (12.0-14.7)
[2017-05-06 05:14] LABS: Anion Gap 14 mmol/L (10-20); BUN (Urea Nitrogen) 49 mg/dL (8.4-25.7); Calc. Creatinine Clearance 54 mL/min (70-130); Carbon Dioxide 32 mmol/L (23-31); Chloride 97 mmol/L (98-107); Estimated GFR-MDRD 62; Glucose 249 mg/dL (83-110); Potassium 4.6 mmol/L (3.5-5.1); Sodium 138 mmol/L (136-145)
--- NOTE | 2017-05-06 08:23 | PDOC.FM ---
- Subjective Subjective: Patient is more sleepy this morning as compared to previous days. He is arousable and will answer questions appropriately. He is A&Ox2. States his family will be here today to visit him. He remains afebrile with normal heart rate and blood pressure overnight. No currently needing NIPPV support, using 3L O2 via NC. - Objective Vital Signs & Weight: Vital Signs (12 hours) Temp Pulse Resp BP Pulse Ox 05/06/17 04:00 98.4 F 72 16 109/51 L 95 05/06/17 03:19 74 20 05/06/17 00:00 98.2 F 73 12 103/48 L 99 05/05/17 20:41 83 Weight Weight 85.139 kg Most Recent Monitor Data Heart Rate from ECG 83 NIBP 144/86 NIBP BP-Mean 105 Respiration from ECG 16 SpO2 100 I&O: 05/05/17 05/06/17 05/07/17 06:59 06:59 06:59 Intake Total 0 Output Total 300 Balance -300 Result Diagrams: 05/06/17 04:33 05/06/17 04:33 <Geoffrey Nieves - Last Filed: 05/06/17 08:20> - Objective Vital Signs & Weight: Vital Signs (12 hours) Temp Pulse Pulse Pulse Pulse Pulse Resp 05/06/17 09:31 75 91 96 95 05/06/17 09:08 05/06/17 08:58 82 18 05/06/17 04:00 98.4 F 72 16 05/06/17 03:19 74 20 05/06/17 00:00 98.2 F 73 12 BP BP BP BP BP Pulse Ox Pulse Ox 05/06/17 09:31 139/89 142/66 H 94/77 154/82 H 97 05/06/17 09:08 99 05/06/17 08:58 99 05/06/17 04:00 109/51 L 95 05/06/17 03:19 05/06/17 00:00 103/48 L 99 Pulse Ox Pulse Ox 05/06/17 09:31 96 91 L 05/06/17 09:08 05/06/17 08:58 05/06/17 04:00 05/06/17 03:19 05/06/17 00:00 Weight Admit Weight 91.081 kg Weight 85.139 kg Most Recent Monitor Data Heart Rate from ECG 83 NIBP 144/86 NIBP BP-Mean 105 Respiration from ECG 16 SpO2 100 I&O: 05/05/17 05/06/17 05/07/17 06:59 06:59 06:59 Intake Total 0 Output Total 300 Balance -300 Result Diagrams: 05/06/17 04:33 05/06/17 04:33 <Mello Curtis - Last Filed: 05/06/17 10:54> Phys Exam - Physical Examination Constitutional: NAD dry mucous membranes Neck: no JVD Respiratory: no rhonchi bilateral wheezing Cardiovascular: RRR, no significant murmur Gastrointestinal: soft, non-tender Neurological: moves all 4 limbs Deviation from normal: A&Ox2 <Geoffrey Nieves - Last Filed: 05/06/17 08:20> Dx/Plan (1) Acute on chronic systolic heart failure Code(s): I50.23 - ACUTE ON CHRONIC SYSTOLIC (CONGESTIVE) HEART FAILURE Status : Chronic Plan: Patient respiratory distress likely cardiogenic after experiencing NSTEMI during hospitalization. He is being medically managed by Cardiology. He was started on digoxin and plavix on top of home medication regimen. We will continue Lasix 40 IV QD for now. BiPap PRN Echo unchanged from previous study- 20% (2) History of CVA (cerebrovascular accident) Code(s): Z86.73 - PRSNL HX OF TIA (TIA), AND CEREB INFRC W/O RESID DEFICITS Status: Chronic Plan: Patient had altered mentation on morning of 05/05 concerning for CVA. Ca lai was called and patient was evaluated appropriately. NIH score of [address] of the head that was negative for hemorrhage, no FND. After speaking with and daughter, the decision was made to hold off on CTA to evaluate for chance at a possible thrombectomy. The patient is a high risk for flash pulmonary edema and has poor kidney function. The contrast and fluid load would likely lead to respiratory decompensation and the risks far outweighed the benefits for the family. His vital signs have stabilized since that time. The family will be visiting him today and will continue palliative care talks to determine whether they would like to pursue hospice at this time. (3) Gross hematuria Status: Resolved Plan: UA shows no infectious process, culture negative CT stone is negative for stone or obstructive pathology Urology has been consulted and is following patient- started Flomax Patient will need elective cystosopy once discharged (4) Unstable angina Status: Acute Plan: CP at rest on 04/27 resulting in transfer to CCU. Patient was started on nitro gtt, plavix, lisinopril, and spironolactone per Cardiology recommendations. Nitro gtt was turned off 04/28 and patient denies recurrence of chest pain. Continue to follow Dr. Hermosillo recommendations (5) NSTEMI (non-ST elevated myocardial infarction) Code(s): I21.4 - NON-ST ELEVATION (NSTEMI) MYOCARDIAL INFARCTION Status: Acute Plan: Followed by Cardiology See above (6) COPD (chronic obstructive pulmonary disease) Status: Acute Plan: Continue steroids, nebs BiPap PRN Pulmonology following (7) CKD (chronic kidney disease) stage 3, GFR 30-59 ml/min Code(s): N18.3 - CHRONIC KIDNEY DISEASE, STAGE 3 (MODERATE) Status: Chronic Plan: Continue to monitor Cr of 1.12 today (8) Dyslipidemia Code(s): E78.5 - HYPERLIPIDEMIA, UNSPECIFIED Status: Chronic Plan: Continue statin - Plan Plan: Plan: -speech to re-eval this morning and make recommendations -PO diet and coumadin versus continued NPO with lovenox -family meeting with palliative to discuss prognosis and possible hospice <Geoffrey Nieves - Last Filed: 05/06/17 08:20> Attending Addendum - Attending Addendum I personally evaluated the patient and discussed the management with Dr. Nieves. I agree with and repeated the History, Examination, Assessment and Plan documented above with any addition or exceptions noted below. Patient with no complaints this morning - no f/c/cp/palp/sob/cough. NAD, resting comfortably, difficult to understand words but this is baseline per team. RRR, no murmur for me Lungs CTAB s w/r/r Bs+, NTTP sCHF stable, continue medical management HTN management stable HLD statin COPD is stable, continue nebs maintenance and PRN NSTEMI per cards Creatinine stable DMII with sugars > 200, increase control today Dig level if none done recently Family and patient want to discuss hospice care. Await their meeting. Guarded prognosis. <Mello Curtis - Last Filed: 05/06/17 10:54>
--- NOTE | 2017-05-06 08:26 | PRG ---
DATE OF SERVICE: 05/06/2017 SUBJECTIVE: The patient is resting comfortably in IMCU. PHYSICAL EXAMINATION: VITAL SIGNS: Vital signs are stable. ABDOMEN: Abdomen is obese, protuberant. Per nursing staff, no gross hematuria. IMPRESSION AND PLAN: 1. Mr. Cast is an 89-year-old male with history of severe chronic obstructive pulmonary disease. 2. Non-ST elevation myocardial infarction. 3. History of atrial fibrillation. 4. History of gross hematuria with Moreno catheter. INR is 1.3. There is no gross recurrence of gross hematuria; however, INR is subtherapeutic. The patient currently is being evaluated for hospice palliative care. will follow p.r.nMagy FRAZIER
--- NOTE | 2017-05-06 08:41 | PDOC.PULPN ---
Progress Note: Subj/Obj - Subjective Date: 05/06/17 Time: 08:40 Narrative: Awake, conversant today - Objective Allergies/Adverse Reactions: Allergies Allergy/AdvReac Type Severity Reaction Status Date / Time iodine Allergy Verified 08/26/14 13:52 shellfish derived Allergy Verified 08/26/14 13:52 Tetanus Vaccines and Toxoid Allergy Verified 08/26/14 13:52 [Tetanus Vaccines & Toxoid] Medications: Current Medications Acetaminophen (Tylenol) 650 mg PO Q4H PRN PRN Reason: Headache/Fever or Pain Last Admin: 04/28/17 03:55 Dose: 650 mg Albuterol/Ipratropium (Duoneb) 3 ml EZPAP [id number] [facility] Last Admin: 05/06/17 03:19 Dose: 3 ml Arformoterol Tartrate (Brovana) 15 mcg NEB BID-RT [facility] Last Admin: 05/05/17 18:53 Dose: 15 mcg Aspirin (Ecotrin) 81 mg PO DAILY [facility] Last Admin: 05/05/17 12:17 Dose: Not Given Atorvastatin Calcium (Lipitor) 20 mg PO HS [facility] Last Admin: 05/05/17 20:41 Dose: Not Given Budesonide (Pulmicort Neb Solution) 0.5 mg INH BID-RT [facility] Last Admin: 05/05/17 18:53 Dose: 0.5 mg Carvedilol (Coreg) 6.25 mg PO BID-WM [facility] Last Admin: 05/05/17 17:07 Dose: Not Given Digoxin (Lanoxin) 0.125 mg PO QAM [facility] Last Admin: 05/05/17 12:17 Dose: Not Given Docusate Sodium (Colace) 100 mg PO BID [facility] Last Admin: 05/05/17 20:41 Dose: Not Given Enoxaparin Sodium (Lovenox) 80 mg SC 0900,2100 ASHISH Furosemide (Lasix) 40 mg PO 0900 [facility] Last Admin: 05/05/17 12:30 Dose: Not Given Guaifenesin/Dextromethorphan (Mucinex Dm) 1 tab PO Q12HR [facility] Last Admin: 05/05/17 20:41 Dose: Not Given Hydralazine HCl (Apresoline) 10 mg SLOW IVP Q15MIN PRN PRN Reason: SBP Greater Than 170 Last Admin: 04/27/17 16:02 Dose: 10 mg Isosorbide Mononitrate (Imdur Er) 30 mg PO DAILY [facility] Last Admin: 05/05/17 12:30 Dose: Not Given Levofloxacin (Levaquin) 750 mg PO 1500 [facility] Last Admin: 05/05/17 15:30 Dose: Not Given Lisinopril (Zestril) 2.5 mg PO BID [facility] Last Admin: 05/05/17 20:41 Dose: Not Given Magnesium Chloride (Slow-Mag) 64 mg PO DAILY [facility] Last Admin: 05/05/17 12:31 Dose: Not Given Melatonin (Melatonin) 3 mg PO HSPRN PRN PRN Reason: Insomnia Last Admin: 04/28/17 22:47 Dose: 3 mg Nitroglycerin (Nitrostat) 0.4 mg SL Q5MIN PRN PRN Reason: Chest Pain Ondansetron HCl (Zofran Odt) 4 mg PO Q6H PRN PRN Reason: Nausea/Vomiting Pantoprazole Sodium (Protonix) 40 mg PO BID [facility] Last Admin: 05/05/17 20:42 Dose: Not Given Phenol (Chloraseptic Logan 180 Ml Bot) 1 ml PO BIDPRN PRN PRN Reason: Sore Throat Polyethylene Glycol (Miralax) 17 gm PO DAILYPRN PRN PRN Reason: Constipation Potassium Chloride (K-Dur) 20 meq PO DAILY [facility] Last Admin: 05/05/17 12:31 Dose: Not Given Prednisone (Prednisone) 20 mg PO BID-[facility] Last Admin: 05/05/17 17:08 Dose: Not Given Ranolazine (Ranexa) 1,000 mg PO BID [facility] Last Admin: 05/05/17 20:42 Dose: Not Given Sodium Chloride (Flush - Normal Saline) 10 ml IVF Q12HR [facility] Last Admin: 05/05/17 20:56 Dose: 10 ml Sodium Chloride (Flush - Normal Saline) 10 ml IVF PRN PRN PRN Reason: Saline Flush Spironolactone (Aldactone) 25 mg PO QAM-[facility] Last Admin: 05/05/17 12:17 Dose: Not Given Tamsulosin HCl (Flomax) 0.4 mg PO DAILY [facility] Last Admin: 05/05/17 12:31 Dose: Not Given Warfarin Sodium (Coumadin) 3 mg PO 1700 [facility] Last Admin: 05/05/17 17:08 Dose: Not Given MAR Reviewed: Yes Vital Signs: Vital Signs Temp 98.4 F 05/06/17 04:00 Pulse 72 05/06/17 04:00 Resp 16 05/06/17 04:00 BP 109/51 L 05/06/17 04:00 Pulse Ox 95 05/06/17 04:00 Intake & Output 05/05/17 05/06/17 05/06/17 18:59 06:59 18:59 Weight 187 lb 11.2 oz Other: Voiding Method Diaper Diaper # Urine Diapers 3 2 # Bowel Movement Diapers 2 2 Progress Note: Exam - Physical Exam Constitutional: NAD HEENT: PERRLA Neck: no JVD Cardiovascular: RRR Respiratory: clear to auscultation bilaterally Gastrointestinal: soft, non-tender Musculoskeletal: edema present Neurological: non-focal, moves all 4 limbs Lymphatic: no nodes Psychiatric: normal affect Skin: no rash Progress Note: Data - Labs Result Diagrams: 05/06/17 04:33 05/06/17 04:33 Lab results: Laboratory Results 05/05/17 05/05/17 05/05/17 04:15 04:15 04:15 WBC 11.5 H RBC 4.45 L Hgb 14.8 Hct 43.2 MCV 97.2 H MCH 33.3 H MCHC 34.3 RDW 11.7 Plt Count 228 MPV 7.5 Neutrophils % Neutrophils % (Manual) 72 Band Neuts % (Manual) 3 L Lymphocytes % Lymphocytes % (Manual) 12 L Monocytes % Monocytes % (Manual) 12 H Eosinophils % Basophils % Metamyelocytes % (Man) 1 H Neutrophils # Lymphocytes # Monocytes # Eosinophils # Basophils # Plt Morphology Comment Appears Adequate Macrocytosis SLIGHT = 6-15 cells PT 16.0 H INR 1.3 APTT Specimen Type Puncture Site Bicarbonate Actual ABG pH ABG pCO2 ABG pO2 ABG O2 Sat Calc/Torey ABG O2 Content ABG Base Excess ABG Hematocrit ABG Hemoglobin ABG Oxyhemoglobin ABG Carboxyhemoglobin ABG Methemoglobin ABG Deoxyhemoglobin Kumra Test A-a O2 Gradient Ionized Calcium Mode of Support Inspired O2 Sodium 134 L Potassium 4.2 Chloride 94 L Carbon Dioxide 32 H Anion Gap 12 BUN 58 H Creatinine 1.39 H Estimated GFR (MDRD) 48 Glucose 150 H POC Glucose Calcium 9.0 Creatine Kinase CK-MB (CK-2) Troponin I Total Beta HCG 05/05/17 05/05/17 05/05/17 09:13 09:13 09:13 WBC RBC Hgb Hct MCV MCH MCHC RDW Plt Count MPV Neutrophils % Neutrophils % (Manual) Band Neuts % (Manual) Lymphocytes % Lymphocytes % (Manual) Monocytes % Monocytes % (Manual) Eosinophils % Basophils % Metamyelocytes % (Man) Neutrophils # Lymphocytes # Monocytes # Eosinophils # Basophils # Plt Morphology Comment Macrocytosis PT INR APTT Specimen Type Puncture Site Bicarbonate Actual ABG pH ABG pCO2 ABG pO2 ABG O2 Sat Calc/Torey ABG O2 Content ABG Base Excess ABG Hematocrit ABG Hemoglobin ABG Oxyhemoglobin ABG Carboxyhemoglobin ABG Methemoglobin ABG Deoxyhemoglobin Kumar Test A-a O2 Gradient Ionized Calcium Mode of Support Inspired O2 Sodium Potassium Chloride Carbon Dioxide Anion Gap BUN Creatinine Estimated GFR (MDRD) Glucose POC Glucose Calcium Creatine Kinase 44 CK-MB (CK-2) 3.0 Troponin I 0.151 H Total Beta HCG 3.34 05/05/17 05/05/17 05/05/17 09:13 16:25 21:35 WBC RBC Hgb Hct MCV MCH MCHC RDW Plt Count MPV Neutrophils % Neutrophils % (Manual) Band Neuts % (Manual) Lymphocytes % Lymphocytes % (Manual) Monocytes % Monocytes % (Manual) Eosinophils % Basophils % Metamyelocytes % (Man) Neutrophils # Lymphocytes # Monocytes # Eosinophils # Basophils # Plt Morphology Comment Macrocytosis PT 16.1 H INR 1.3 APTT 26.6 Specimen Type ARTERIAL Puncture Site L.B. Bicarbonate Actual 29.2 H ABG pH 7.43 ABG pCO2 44.9 ABG pO2 71.1 L ABG O2 Sat Calc/Torey 95.0 ABG O2 Content 20.3 ABG Base Excess 4.1 H ABG Hematocrit 47.4 ABG Hemoglobin 15.5 ABG Oxyhemoglobin 93.0 L ABG Carboxyhemoglobin 1.5 ABG Methemoglobin 0.6 ABG Deoxyhemoglobin 4.9 Kumar Test NOT DONE A-a O2 Gradient 102.535 H Ionized Calcium 1.2 Mode of Support 3L NC Inspired O2 32 Sodium 136 Potassium 4.3 Chloride 95 L Carbon Dioxide Anion Gap BUN Creatinine Estimated GFR (MDRD) Glucose POC Glucose 239 H Calcium Creatine Kinase CK-MB (CK-2) Troponin I Total Beta HCG 05/06/17 05/06/17 05/06/17 04:33 04:33 04:33 WBC 15.3 H RBC 4.80 Hgb 15.8 Hct 47.2 MCV 98.2 H MCH 33.0 H MCHC 33.6 RDW 11.8 Plt Count 235 MPV 7.5 Neutrophils % 87.6 H Neutrophils % (Manual) Band Neuts % (Manual) Lymphocytes % 4.1 L Lymphocytes % (Manual) Monocytes % 8.1 Monocytes % (Manual) Eosinophils % 0.2 Basophils % 0.1 Metamyelocytes % (Man) Neutrophils # 13.4 H Lymphocytes # 0.6 L Monocytes # 1.2 H Eosinophils # 0.0 Basophils # 0.0 Plt Morphology Comment Macrocytosis PT 16.5 H INR 1.3 APTT Specimen Type Puncture Site Bicarbonate Actual ABG pH ABG pCO2 ABG pO2 ABG O2 Sat Calc/Torey ABG O2 Content ABG Base Excess ABG Hematocrit ABG Hemoglobin ABG Oxyhemoglobin ABG Carboxyhemoglobin ABG Methemoglobin ABG Deoxyhemoglobin Kumar Test A-a O2 Gradient Ionized Calcium Mode of Support Inspired O2 Sodium 138 Potassium 4.6 Chloride 97 L Carbon Dioxide 32 H Anion Gap 14 BUN 49 H Creatinine 1.12 Estimated GFR (MDRD) 62 Glucose 249 H POC Glucose Calcium 9.0 Creatine Kinase CK-MB (CK-2) Troponin I Total Beta HCG 05/06/17 06:41 WBC RBC Hgb Hct MCV MCH MCHC RDW Plt Count MPV Neutrophils % Neutrophils % (Manual) Band Neuts % (Manual) Lymphocytes % Lymphocytes % (Manual) Monocytes % Monocytes % (Manual) Eosinophils % Basophils % Metamyelocytes % (Man) Neutrophils # Lymphocytes # Monocytes # Eosinophils # Basophils # Plt Morphology Comment Macrocytosis PT INR APTT Specimen Type Puncture Site Bicarbonate Actual ABG pH ABG pCO2 ABG pO2 ABG O2 Sat Calc/Torey ABG O2 Content ABG Base Excess ABG Hematocrit ABG Hemoglobin ABG Oxyhemoglobin ABG Carboxyhemoglobin ABG Methemoglobin ABG Deoxyhemoglobin Kumar Test A-a O2 Gradient Ionized Calcium Mode of Support Inspired O2 Sodium Potassium Chloride Carbon Dioxide Anion Gap BUN Creatinine Estimated GFR (MDRD) Glucose POC Glucose 222 H Calcium Creatine Kinase CK-MB (CK-2) Troponin I Total Beta HCG Progress Note: A/P - Problems (1) Chronic obstructive pulmonary disease with acute exacerbation Current Visit: Yes Status: Acute Code(s): J44.1 - CHRONIC OBSTRUCTIVE PULMONARY DISEASE W (ACUTE) EXACERBATION (2) CHOLO (acute kidney injury) Current Visit: No Status: Acute Code(s): N17.9 - ACUTE KIDNEY FAILURE, UNSPECIFIED (3) Acute on chronic systolic heart failure Current Visit: No Status: Chronic Code(s): I50.23 - ACUTE ON CHRONIC SYSTOLIC (CONGESTIVE) HEART FAILURE (4) Angina at rest Current Visit: No Status: Acute Code(s): I20.8 - OTHER FORMS OF ANGINA PECTORIS - Plan Plan: Mental status better today Agree with hospice plan
[2017-05-06] MEDS: Arformoterol 15 MCG/2 ML NEB NEB SCH ×2 (09:08→18:49)
[2017-05-06 09:17] VITALS: BMI 26.9
[2017-05-06] MEDS ORDERED: Dextrose 5% in Water 1,000 ML IV PRN (10:56)
[2017-05-06] MEDS ORDERED: Dextrose 50% Abboject 50 ML SYRINGE SLOW IVP PRN (10:56)
[2017-05-06] MEDS: Carvedilol 6.25 MG TAB PO SCH ×2 (11:29→16:29)
[2017-05-06] MEDS: Spironolactone 25 MG TAB PO SCH (11:31)
[2017-05-06] MEDS: Aspirin 81 mg Enteric Coated Tablet PO SCH (11:31)
[2017-05-06] MEDS: Digoxin 0.125 MG TAB PO SCH (11:31)
[2017-05-06 11:32] LABS: Hemoglobin A1c 6.3 % (4.0-6.0)
[2017-05-06] MEDS: Docusate 100 MG CAP PO SCH ×2 (11:32→21:11)
[2017-05-06] MEDS: Furosemide 40 MG TAB PO SCH (11:33)
[2017-05-06] MEDS: Enoxaparin Sodium 80 MG/0.8 ML SYRINGE SC SCH ×2 (11:33→21:12)
[2017-05-06] MEDS: Lisinopril 2.5 MG TAB PO SCH ×2 (11:34→21:18)
[2017-05-06] MEDS: Potassium Chloride 20 MEQ TAB PO SCH (11:35)
[2017-05-06] MEDS: Magnesium Chloride 64 MG TAB PO SCH (11:35)
[2017-05-06] MEDS: Tamsulosin HCl 0.4 MG CAP PO SCH (11:36)
[2017-05-06] MEDS: predniSONE 20 MG TAB PO SCH ×2 (11:36→11:59)
[2017-05-06 11:39] LABS: Digoxin 1.39 ng/mL (0.8-2.0)
[2017-05-06] MEDS: guaiFENesin/DM ER PO SCH ×2 (11:45→21:11)
[2017-05-06] MEDS: Budesonide 0.5 MG/2 ML NEB INH SCH ×2 (11:47→18:49)
[2017-05-06] MEDS: Warfarin Sodium 3 MG TAB PO SCH (16:30)
[2017-05-06] MEDS: HumaLOG 300 UNITS/3 ML VIAL SC PRN ×2 (17:39→21:19)
[2017-05-06] MEDS: Atorvastatin Calcium 20 MG TAB PO SCH (21:12)
[2017-05-07] MEDS: HumaLOG 300 UNITS/3 ML VIAL SC PRN (06:03)
--- NOTE | 2017-05-07 07:58 | PDOC.FM ---
- Subjective Subjective: No acute events overnight per nursing. Patients vital signs remained stable. The patient and family have met with palliative care extensively, and will be transitioning to inpatient hospice today. - Objective MAR Reviewed: Yes Vital Signs & Weight: Vital Signs (12 hours) Temp Pulse Resp BP BP Pulse Ox 05/07/17 07:27 96.6 F L 71 22 H 125/85 95 05/07/17 04:00 97.8 F 88 22 H 119/57 L 93 L 05/07/17 02:34 76 16 92 L 05/07/17 00:00 97.8 F 82 20 90/57 L 92 L 05/06/17 22:14 76 16 05/06/17 21:18 84 79/49 L 05/06/17 20:00 97.7 F 86 19 92/55 L 100 Weight Admit Weight 91.081 kg Weight 85.094 kg Most Recent Monitor Data Heart Rate from ECG 83 NIBP 144/86 NIBP BP-Mean 105 Respiration from ECG 16 SpO2 100 I&O: 05/06/17 05/07/17 05/08/17 06:59 06:59 06:59 Intake Total 1210 Balance 1210 Result Diagrams: 05/06/17 04:33 05/06/17 04:33 <Geoffrey Nieves - Last Filed: 05/07/17 07:56> - Objective Vital Signs & Weight: Vital Signs (12 hours) Temp Pulse Resp BP BP Pulse Ox 05/07/17 09:59 109/52 L 05/07/17 09:58 87 05/07/17 09:57 87 05/07/17 09:37 87 20 92 L 05/07/17 09:29 92 L 05/07/17 09:27 87 20 92 L 05/07/17 09:26 87 20 92 L 05/07/17 07:27 96.6 F L 71 22 H 125/85 95 05/07/17 04:00 97.8 F 88 22 H 119/57 L 93 L 05/07/17 02:34 76 16 92 L 05/07/17 00:00 97.8 F 82 20 90/57 L 92 L Weight Admit Weight 91.081 kg Weight 85.094 kg Most Recent Monitor Data Heart Rate from ECG 83 NIBP 144/86 NIBP BP-Mean 105 Respiration from ECG 16 SpO2 100 I&O: 05/06/17 05/07/17 05/08/17 06:59 06:59 06:59 Intake Total 1210 Balance 1210 Result Diagrams: 05/06/17 04:33 05/06/17 04:33 <EverMello - Last Filed: 05/07/17 10:52> Phys Exam - Physical Examination Constitutional: NAD HEENT: moist MMs Respiratory: no rales mild wheezing bilaterally Cardiovascular: RRR, no significant murmur Gastrointestinal: soft, non-tender Neurological: moves all 4 limbs Psychiatric: normal affect Deviation from normal: A&Ox2 <Geoffrey Nieves - Last Filed: 05/07/17 07:56> Dx/Plan (1) Acute on chronic systolic heart failure Code(s): I50.23 - ACUTE ON CHRONIC SYSTOLIC (CONGESTIVE) HEART FAILURE Status : Chronic Plan: Patient respiratory distress likely cardiogenic after experiencing NSTEMI during hospitalization. He is being medically managed by Cardiology. He was started on digoxin and plavix on top of home medication regimen. We will continue Lasix 40 IV QD for now. BiPap PRN Echo unchanged from previous study- 20% (2) History of CVA (cerebrovascular accident) Code(s): Z86.73 - PRSNL HX OF TIA (TIA), AND CEREB INFRC W/O RESID DEFICITS Status: Chronic Plan: Patient had altered mentation on morning of 05/05 concerning for CVA. Ca lai was called and patient was evaluated appropriately. NIH score of [address] of the head that was negative for hemorrhage, no FND. After speaking with and daughter, the decision was made to hold off on CTA to evaluate for chance at a possible thrombectomy. The patient is a high risk for flash pulmonary edema and has poor kidney function. The contrast and fluid load would likely lead to respiratory decompensation and the risks far outweighed the benefits for the family. His vital signs have stabilized since that time. (3) Gross hematuria Status: Resolved Plan: UA shows no infectious process, culture negative CT stone is negative for stone or obstructive pathology Urology has been consulted and is following patient- started Flomax Patient will need elective cystosopy once discharged (4) Unstable angina Status: Acute Plan: CP at rest on 04/27 resulting in transfer to CCU. Patient was started on nitro gtt, plavix, lisinopril, and spironolactone per Cardiology recommendations. Nitro gtt was turned off 04/28 and patient denies recurrence of chest pain. Continue to follow Dr. Hermosillo recommendations (5) NSTEMI (non-ST elevated myocardial infarction) Code(s): I21.4 - NON-ST ELEVATION (NSTEMI) MYOCARDIAL INFARCTION Status: Acute Plan: Followed by Cardiology See above (6) COPD (chronic obstructive pulmonary disease) Status: Acute Plan: Continue steroids, nebs BiPap PRN Pulmonology following (7) CKD (chronic kidney disease) stage 3, GFR 30-59 ml/min Code(s): N18.3 - CHRONIC KIDNEY DISEASE, STAGE 3 (MODERATE) Status: Chronic Plan: y (8) Dyslipidemia Code(s): E78.5 - HYPERLIPIDEMIA, UNSPECIFIED Status: Chronic Plan: Continue statin - Plan Plan: Plan: -per the patient and the family's wishes, patient will be transferred to inpatient hospice today. OOH DDNR signed <Geoffrey Nieves - Last Filed: 05/07/17 07:56> Attending Addendum - Attending Addendum I personally evaluated the patient and discussed the management with Dr. Nieves. I agree with and repeated the History, Examination, Assessment and Plan documented above with any addition or exceptions noted below. Doing well this morning. No cp/sob/n/v/f/c. Unable to significantly ambulate with PT yesterday. Overall, he has a guarded prognosis with severe CHF and has been back and forth from the unit with only tenuous stability. Apparently looked this good before his last transfer. Will proceed with inpatient hospice. <Mello Curtis - Last Filed: 05/07/17 10:52>
[2017-05-07] MEDS ORDERED: Apixaban 5 MG TAB PO SCH (09:00)
[2017-05-07] MEDS: Budesonide 0.5 MG/2 ML NEB INH SCH (09:27)
[2017-05-07] MEDS: Arformoterol 15 MCG/2 ML NEB NEB SCH (09:37)
--- NOTE | 2017-05-07 09:47 | PRG ---
DATE OF SERVICE: 05/07/2017 He is in fairly good spirits today, says his legs are really weak. PHYSICAL EXAMINATION: VITAL SIGNS: Temperature 96.6, pulse 71, respiration 22, O2 sat 95% on room air. HEENT: Unremarkable. NECK: No JVD. LUNGS: Coarse breath sounds. CARDIAC: S1 and S2 regular. ABDOMEN: Soft. EXTREMITIES: Trace edema. LABORATORY DATA: No labs were obtained today. ASSESSMENT: 1. Acute on chronic systolic heart failure. 2. Acute kidney injury. 3. Chronic obstructive pulmonary disease with exacerbation. PLAN: The patient has several non-reparable issues and I agree with hospice care as his chance of ac hieving his previous quality of life is minimal.
[2017-05-07] MEDS: Digoxin 0.125 MG TAB PO SCH (09:57)
[2017-05-07] MEDS: Tamsulosin HCl 0.4 MG CAP PO SCH (09:57)
[2017-05-07] MEDS: Furosemide 40 MG TAB PO SCH (09:58)
[2017-05-07] MEDS: Lisinopril 2.5 MG TAB PO SCH (09:58)
[2017-05-07] MEDS: Aspirin 81 mg Enteric Coated Tablet PO SCH (09:58)
[2017-05-07] MEDS: Carvedilol 6.25 MG TAB PO SCH (09:59)
[2017-05-07] MEDS: Potassium Chloride 20 MEQ TAB PO SCH (09:59)
[2017-05-07] MEDS: predniSONE 20 MG TAB PO SCH (09:59)
[2017-05-07] MEDS: guaiFENesin/DM ER PO SCH (10:01)
[2017-05-07] MEDS: Spironolactone 25 MG TAB PO SCH (10:01)
[2017-05-07] MEDS: Magnesium Chloride 64 MG TAB PO SCH (10:01)
[2017-05-07] MEDS: Docusate 100 MG CAP PO SCH (10:05)
[2017-05-07 15:32] VITALS: BP 112/46; TEMP 96.7
--- NOTE | 2017-05-09 16:34 | EKG ---
Test Reason : Blood Pressure : / mmHG Vent. Rate : 079 BPM Atrial Rate : 396 BPM P-R Int : 000 ms QRS Dur : 104 ms QT Int : 372 ms P-R-T Axes : 000 021 269 degrees QTc Int : 426 ms Atrial flutter with variable A-V block Nonspecific ST and T wave abnormality Abnormal ECG When compared with ECG of 27-APR-2017 09:33, Atrial flutter has replaced Sinus rhythm Nonspecific T wave abnormality, worse in Inferior leads Nonspecific T wave abnormality now evident in Anterior leads QT has shortened Confirmed by Herman BURK ([id number]) on 05/09/2017 4:34:22 PM Referred By: [email or web address] Confirmed By:Herman BURK
== END 2017-05-07 15:55 | disposition hospice, inpatient (51) | DRG 280 ==
LOC: ERS 10:15 → ERHOLD 11:00 → IMCU/EMU 14:06 → CCU 04-27 11:14 → 2NO 04-30 07:55 → IMCU/EMU 04-30 20:16 → 2NO 05-04 15:36 → IMCU/EMU 05-05 10:53
PROVIDERS: ADMIT Family Medicine; ATTEND Family Medicine
DX: I21.4 Non-ST elevation (NSTEMI) myocardial infarction (principal); J96.01 Acute respiratory failure with hypoxia; N17.9 Acute kidney failure, unspecified; I50.23 Acute on chronic systolic (congestive) heart failure; J44.1 Chronic obstructive pulmonary disease with (acute) exacerbation; J45.901 Unspecified asthma with (acute) exacerbation; R31.0 Gross hematuria; E11.22 Type 2 diabetes mellitus with diabetic chronic kidney disease; I13.0 Hypertensive heart and chronic kidney disease with heart failure and stage 1 through stage 4 chronic kidney disease, or unspecified chronic kidney disease; Z51.5 Encounter for palliative care; E78.5 Hyperlipidemia, unspecified; Z86.73 Personal history of transient ischemic attack (TIA), and cerebral infarction without residual deficits; I48.91 Unspecified atrial fibrillation; I25.2 Old myocardial infarction; Z85.46 Personal history of malignant neoplasm of prostate; Z87.891 Personal history of nicotine dependence; I25.110 Atherosclerotic heart disease of native coronary artery with unstable angina pectoris; Z79.01 Long term (current) use of anticoagulants; I25.5 Ischemic cardiomyopathy; E66.9 Obesity, unspecified; Z68.26 Body mass index [BMI] 26.0-26.9, adult; I48.0 Paroxysmal atrial fibrillation; R19.7 Diarrhea, unspecified; N18.3 Chronic kidney disease, stage 3 (moderate)
CPT/HCPCS: 36415; 36416; 70450; 71045; 74176; 80048; 80162; 81003; 81015; 82550; 82553; 82805; 83036; 84484; 84702; 85014; 85018; 85025; 85610; 85730; 87086; 93005; 93010; 93306; 93798; 94640; 94660; 94760; A4216; G8978-GP-CK; G8978-GP-CM; G8979-GP-CK; G8987-GO-CL; G8988-GO-CJ; G8996-GN-CL; G8996-GN-CM; G8997-GN-CK; J0360; J1200; J1940; J1956; J2930; J7506; J7611; J7620; J7626; S0028